=== PATIENT | female | born 1940 | race Caucasian/White ===

== ENCOUNTER → 2020-06-27 10:49 | Outpatient (BNVA) | payer MEDICARE, OTHER, SELFPAY | PROVIDERS: Family Provider Nurse Practitioner; PCP Nurse Practitioner; Visit Provider Nurse Practitioner | DX: I10 Essential (primary) hypertension (principal); Q72.812 Congenital shortening of left lower limb; E78.2 Mixed hyperlipidemia; F41.8 Other specified anxiety disorders; K21.9 Gastro-esophageal reflux disease without esophagitis; Z23 Encounter for immunization | CPT/HCPCS: 80053; 80061; 84443 ==

== ENCOUNTER → 2021-07-20 08:32 | Outpatient (BNVA) | payer MEDICARE, OTHER, SELFPAY | PROVIDERS: Family Provider Nurse Practitioner; PCP Nurse Practitioner; Visit Provider Nurse Practitioner | DX: I10 Essential (primary) hypertension (principal); E55.9 Vitamin D deficiency, unspecified | CPT/HCPCS: 80053; 80061; 82306; 84443; 85025 ==

== ENCOUNTER 2022-02-23 15:40 | Outpatient (CLI) | payer MEDICARE, OTHER, SELFPAY ==
--- NOTE | 2022-02-23 16:00 | XR_ITS ---
WS: [email or web address] XR knee RT 3V* [id number] REASON FOR EXAM: I10 - Essential (primary) hypertension FINDINGS: No fracture or focal bone lesion. Moderate narrowing of the medial knee joint space with subchondral sclerosis and marginal osteophytes . Lateral knee joint space is intact and relatively well-preserved. Mild narrowing of the patellofemoral joint space with mild subchondral sclerosis of the patella. No soft tissue abnormality. XR/XR knee RT 3V* [id number] IMPRESSION: Osteoarthritis of the right knee with no acute abnormality.
--- NOTE | 2022-02-23 16:00 | XR_ITS ---
WS: [email or web address] XR knee LT 3V* [id number] REASON FOR EXAM: I10 - Essential (primary) hypertension FINDINGS: No acute fracture or focal bone lesion. Mild to moderate narrowing of the medial knee joint space with mild subchondral sclerosis and small m arginal osteophytes. Mild narrowing of the lateral knee joint space. Mild narrowing of the patellofemoral joint space. No soft tissue abnormality. XR/XR knee LT 3V* [id number] IMPRESSION: Mild changes of osteoarthritis with no acute abnormality.
--- NOTE | 2022-02-23 16:00 | XR_ITS ---
WS: [email or web address] XR lumbar spine 2-3V* [id number] REASON FOR EXAM: I10 - Essential (primary) hypertension FINDINGS: Rotatory scoliosis convex left. Straightening of the normal lordosis of the lumbar spine. No focal vertebral body lesion. Compared to the examination of 08/03/2015, increasing rotatory scoliosis with increasing right latera l wedge compression deformity of L2. Severe narrowing of the intervertebral disc spaces from L1 to S1. Large anterior osteophytes. 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 No acute abnormality.
--- NOTE | 2022-02-23 16:00 | XR_ITS ---
WS: [email or web address] XR ankle RT min 3V* [id number] REASON FOR EXAM: I10 - Essential (primary) hypertension FINDINGS: No acute fracture or focal bone lesion. Joint spaces of the right ankle are relatively well preserved with mild degenerative change in the me dial and lateral malleolus. No soft tissue abnormality. XR/XR ankle RT min 3V* [id number] IMPRESSION: Minimal change of osteoarthritis with no acute abnormality.
--- NOTE | 2022-02-23 16:00 | XR_ITS ---
WS: [email or web address] XR hip BI 3-4V wo/w pel [id number] REASON FOR EXAM: I10 - Essential (primary) hypertension FINDINGS: RIGHT HIP: No fracture or focal bone lesion. Moderate narrowing of the right hip joint space with moderate subchondral sclerosis and osteophytic s purring of the acetabulum. The adjacent bony pelvis is intact. LEFT HIP: No fracture or focal bone lesion. Moderate narrowing of the left hip joint space with moderate subchondral sclerosis and osteophytic sp urring of the acetabulum. The adjacent bony pelvis is intact. No soft tissue abnormality. XR/XR hip BI 3-4V wo/w pel [id number] IMPRESSION: Bilateral osteoarthritis of the hips with no acute abnormality.
--- NOTE | 2022-02-23 16:00 | XR_ITS ---
WS: [email or web address] XR ankle LT min 3V* [id number] REASON FOR EXAM: I10 - Essential (primary) hypertension FINDINGS: No acute fracture or focal bone lesion. Joint spaces of the left ankle are intact and relatively well-preserved. No soft tissue abnormality. XR/XR ankle LT min 3V* [id number] IMPRESSION: No acute abnormality.
[2022-02-23 16:14] LABS: Basophils # 0.1 10^3/uL (0.0-0.1); Basophils % 0.8 %; Eosinophils # 0.2 10^3/uL (0.0-0.8); Eosinophils % 2.3 %; Hemoglobin 14.5 g/dL (11.5-15.3); Lymphocytes # 2.1 10^3/uL (0.8-4.8); Lymphocytes % 28.4 %; Mean Corpuscular Hemoglobin 30.6 pg (28.0-34.0); Mean Corpuscular Volume 92.8 fl (81-99); Mean Platelet Volume 9.7 fL (7.4-10.4); Monocytes # 0.7 10^3/uL (0.2-0.9); Monocytes % 9.7 %; Neutrophils # 4.34 10^3/uL (1.8-7.7); Neutrophils % 58.4 %; Nucleated Red Blood Cells % 0 %; Platelet Count 314 10^3/cmm (130-400); Red Blood Count 4.74 10^6/uL (4.1-5.3); Red Cell Distribution Width 12.4 % (12.1-15.1); White Blood Count 7.4 10^3/uL (4.0-10.0)
[2022-02-23 16:47] LABS: Alanine Aminotransferase 19 U/L (0-33); Albumin Level 4.2 g/dL (3.5-5.2); Alkaline Phosphatase 108 IU/L (35-105); Anion Gap 17.6 (5-19); Aspartate Amino Transferase 30 U/L (0-32); Blood Urea Nitrogen 14 mg/dL (8-23); Calcium 9.1 mg/dL (8.5-10.5); Carbon Dioxide 23 mmol/L (22-29); Chloride 100 mmol/L (98-107); Chol HDL Ratio 2.43 mg/dL (0.0-4.40); Cholesterol 131 mg/dL (0-200); Globulin 3.3 g/dL (1.3-4.6); Glucose 101 mg/dL (65-115); HDL Cholesterol 54 mg/dL (60-100); LDL Cholesterol Calculated 64 mg/dL (50-129); Osmolality Calculated 285 mOsm/kg (285-295); Potassium 3.6 mmol/L (3.5-5.1); Sodium 137 mmol/L (136-145); Total Bilirubin 0.5 mg/dL (0.15-1.2); Total Protein 7.5 g/dL (6.6-8.7); Triglycerides 66 mg/dL (0-150); VLDL Cholestrol Calculation 13 mg/dL (0-30)
[2022-02-23 16:48] LABS: Thyroid Stimulating Hormone 2.22 uIU/mL (0.27-4.20); Vitamin B12 449 pg/mL (232-1245)
== END 2022-02-23 15:41 | disposition home or self-care (01) ==
PROVIDERS: Family Provider Nurse Practitioner; PCP Nurse Practitioner; Visit Provider Nurse Practitioner
DX: I10 Essential (primary) hypertension (principal); M14.60 Charcot's joint, unspecified site; M47.9 Spondylosis, unspecified
CPT/HCPCS: 36415; 72100; 73522; 73562; 73610; 80053; 80061; 82607; 84443; 85025

== ENCOUNTER 2022-07-09 14:54 | Emergency (ER) | payer MEDICARE, OTHER, SELFPAY ==
--- NOTE | 2022-07-09 14:56 | CT_ITS ---
WS: [email or web address] CT HEAD NONCONTRAST HISTORY: fall TECHNIQUE: Contiguous axial imaging performed through the brain in 2.5 mm imaging. Bone and soft tiss ue windows. Sagittal and coronal reformats reviewed. All CT scans at [facility] use at least one of these dose optimization techniques: automated exposure control; mA and/or kV adjustment per pa tient size (includes targeted exams where dose is matched to clinical indication); or iterative recon struction. DLP: 1838.92 mGy.cm COMPARISON: 05/18/2019 No acute intracranial hemorrhage, midline shift or mass effect. Mild atrophy and moderate small vessel ischemic disease. Small lacunar infarcts in the basal ganglia. Ventricles: Normal size with no hydrocephalus. No inferior displacement of cerebellar tonsils. Paranasal sinuses: As visualized are clear. Mastoid air cells: Well pneumatized. Calvarium and scalp: Marked hyperostosis frontalis interna. No fractures are identified. Stable lytic area towards the RIGHT parietal vertex. CT/CT head wo con* [id number] IMPRESSION: 1. No acute intracranial hemorrhage or edema. 2. Mild atrophy with moderate small vessel ischemic disease.
--- NOTE | 2022-07-09 14:56 | CT_ITS ---
WS: [email or web address] CT CERVICAL SPINE HISTORY: fall TECHNIQUE: Contiguous 2.5 mm axial imaging performed through the entire cervical spine. Sagittal and coronal reformats also performed. All CT scans at [facility] use at least one of these dose o ptimization techniques: automated exposure control; mA and/or kV adjustment per patient size (include s targeted exams where dose is matched to clinical indication); or iterative reconstruction. DLP: 1838.92 mGy.cm COMPARISON: None available. Straightening and reversal of normal cervical lordosis. C4 anterolisthesis by 2 mm. Disc space narrow ing at C5-6. Craniocervical junction is normally aligned. Facet joints are normally aligned. Odontoid process is normal. Lateral masses of C1 and C2 are aligned. Mild diffuse bilateral facet joint arthr itis. No large disc protrusions. No severe central stenosis. Moderate central stenosis at C5-6 and C6 -7 with moderate foraminal stenosis predominantly due to osteophyte and disc disease. CT/CT cervical spin wo con* [id number] IMPRESSION: 1. No acute cervical spine fracture. 2. Moderate central and bilateral foraminal stenosis at C5-6 and C6-7.
--- NOTE | 2022-07-09 14:56 | CT_ITS ---
WS: [email or web address] CT FACIAL BONES HISTORY: fall TECHNIQUE: Images obtained from the supraorbital location through the mandible. Soft tissue and bone windows are reviewed. Coronal and sagittal reformats have also been submitted. DLP: 1838.[address] scans at [facility] use at least one of these dose optimization techniques: automated e xposure control; mA and/or kV adjustment per patient size (includes targeted exams where dose is matc hed to clinical indication); or iterative reconstruction. COMPARISON: None available. No zygomatic arch or nasal bone fractures. No air-fluid levels with the sinus cavities. Orbits and gl obes are negative. No soft tissue abnormality. Upper cervical spine is negative for acute injury. CT/CT facial bones wo con* [id number] IMPRESSION: No facial bone fracture.
[2022-07-09 15:02] VITALS: BP 153/92; PULSE 84; RESP 16; TEMP 36.6; O2SAT 92; BMI 28.3
--- NOTE | 2022-07-09 15:34 | ED_ITS ---
HPI - General Adult General: Chief complaint: Fall Stated complaint: FALL/ HIT HEAD Time Seen by Provider: 07/09/22 14:56 History of Present Illness: Patient is an 82-year-old female with history of hypertension, hyperlipidemia, prior L1 vertebral compression presenting to the emergency room after an episode of fall around 3:00. Patient was on a stepstool he turned and when she fell forwards hitting her head. Patient was slow to get up. Patient denies LOC is or any pain afterwards. Patient reports headache after the fall. Patient denies any other associated injuries or pain. Patient denies any associate chest pain, shortness of palpitation lightheadedness, nausea/vomiting or any other symptoms prior to the fall. Besides headache, patient has no focal complaints at the present time. Patient denies any anticoagulation use. Onset: 3pm Duration:once Location:home Severity:moderate Associated symptoms: Reports headache(s); Deny chest pain, dyspnea, nausea, rash, palpitations or vomiting Review of Systems Const: Denies: fever(s) or chills Eyes: Denies: change in vision ENMT: Denies: mouth pain Card: Denies: chest pain or palpitations Resp: Denies: dyspnea or non-productive cough GI: Denies: abdominal pain, nausea, vomiting or diarrhea : Denies: dysuria Musc: Denies: extremity pain Skin/Breast: Denies: rash or new lesions Neuro: Reports: headache(s); Denies: weakness in extremities Psych: Reports: other (Normal mood) Lefty/Lymph: Denies: easy bruising PFSH ED PFSH: Medical History Acid reflux Congenital shortening of left lower limb Essential (primary) hypertension Mixed anxiety and depressive disorder Mixed hyperlipidemia OA (osteoarthritis of spine) Restless leg Vitamin D insufficiency Wedge compression fracture of L1 vertebra Surgical History History of cataract surgery Family History Other Arthritis Cancer Heart disease Social History Smoking and tobacco status: never smoked Second hand smoke exposure: No Smoking risk assessment/counseling performed?: No Alcohol intake: never Desire information about alcohol rehabilitation?: No Counseling given: No Desire information about substance/drug rehabilitation?: No Counseling given: No Caregiver/support person: No Lives independently: Yes Household members: family Housing: House Marital status: / Current occupational status: retired History of recent travel: No Current gender identity: Female Physical Exam Const: COMMON NORMALS: alert HENMT: COMMON NORMALS: atraumatic HEAD & SCALP: atraumatic MOUTH: moist mucous membranes not abnormal OTHER: No bruises or hematoma Eye: COMMON NORMALS: EOMs intact bilaterally and conjunctivae normal CONJUNCTIVA: Yes conjunctivae normal Neck/C-Spine: COMMON NORMALS: full ROM and supple Resp: COMMON NORMALS: normal respiratory effort and clear to auscultation bilaterally AUSCULTATION: clear to auscultation bilaterally Cardio: COMMON NORMALS: regular rate RATE: regular rate GI: COMMON NORMALS: Soft to palpation and non-tender PALPATION: Yes Soft to palpation Extremity: COMMON NORMALS: full ROM Neuro: SENSORIUM/ORIENTATION: Yes alert MOTOR EXAM: No Abnormal motor strength present and Other motor observations present (no focal motor deficits) Psych: COMMON NORMALS: speech normal SPEECH: Yes normal speech MOOD & AFFECT: Yes euthymic mood Course Vital Signs: Vital signs: Vital Signs Temperature 97.8 F 07/09/22 15:02 Pulse Rate 98 07/09/22 18:01 Respiratory Rate 18 07/09/22 18:01 Blood Pressure 147/87 07/09/22 18:01 Pulse Oximetry 97 07/09/22 18:01 Oxygen Delivery Me thod 07/09/22 18:01 MDM - General Adult Medical Decision Making Patient is an 82-year-old female with history of hypertension, hyperlipidemia, prior L1 vertebral compression presenting to the emergency room after an episode of fall around 3:00. She has no focal findings of trauma on physical exam. CT head is negative for any acute findings. CT face negative for any acute fractures. Patient is received Tylenol for his headaches improved. Patient continues to be hemodynamically stable while observed in the emergency room. Do not suspect ACS. Patient reports headache improved with medication. Rx tylenol PRN headache, menthol PRN pain Disposition: Discharge. Patient counseled regarding diagnostic impression, treatment plan. Patient given ED strict return precautions to return for continuation, worsening, or development of new symptoms. Instructed to f/u w/ PCP regarding symptoms today. Patient verbalized understanding. Lab Data Radiology Impressions Cervical Spine CT 07/09/22 14:56 IMPRESSION: 1. No acute cervical spine fracture. 2. Moderate central and bilateral foraminal stenosis at C5-6 and C6-7. Face CT 07/09/22 14:56 IMPRESSION: No facial bone fracture. Head CT 07/09/22 14:56 IMPRESSION: 1. No acute intracranial hemorrhage or edema. 2. Mild atrophy with moderate small vessel ischemic disease. Laboratory Results Urine Color Straw (Yellow) 07/09/22 15:30 Urine Appearance Clear (CLEAR) 07/09/22 15:30 Urine pH 6 (5-7) 07/09/22 15:30 Ur Specific [place] 1.010 (1.005-1.030) 07/09/22 15:30 Urine Protein Neg (Negative) 07/09/22 15:30 Urine Glucose (UA) Norm (Normal) 07/09/22 15:30 Urine Ketones Negative (Negative) 07/09/22 15:30 Urine Blood Neg (Negative) 07/09/22 15:30 Urine Nitrate Negative (Negative) 07/09/22 15:30 Urine Bilirubin Neg (Negative) 07/09/22 15:30 Urine Urobilinogen Norm mg/dL (Negative) 07/09/22 15:30 Ur Leukocyte Esterase Negative (Negative) 07/09/22 15:30 Urine RBC None /hpf (0-2) 07/09/22 15:30 Urine WBC 0-4 /hpf (0-5) H 07/09/22 15:30 Ur Squamous Epith Cells 0-4 /hpf (0-5) H 07/09/22 15:30 Amorphous Sediment Not Reportable 07/09/22 15:30 Urine Bacteria Trace /hpf (NONE) 07/09/22 15:30 Imaging Data Other Imaging: Radiologist's impression: [address] [address] [address] Scan Report Signed Patient: Fernando Jean (Judy) Unit #: [id number] : 1940 Age/Sex: 82 / F ADM Date: 07/09/22 Loc: ER Room/Bed: Attending Dr: Ordering Provider/Ordering MD: Cassy Thomas MD Date of Service: 07/09/22 Procedure(s): CT head wo con* [id number] Accession Number(s): [id number] Report Number: [id number] WS: [email or web address] CT HEAD NONCONTRAST HISTORY: fall TECHNIQUE: Contiguous axial imaging performed through the brain in 2.5 mm imaging. Bone and soft tissue windows. Sagittal and coronal reformats reviewed.? All CT scans at [facility] use at least one of these dose optimization techniques: automated exposure control; mA and/or kV adjustment per patient size (includes targeted exams where dose is matched to clinical indication); or iterative reconstruction. DLP: 1838.92 mGy.cm COMPARISON: 05/18/2019 No acute intracranial hemorrhage, midline shift or mass effect. Mild atrophy and moderate small vessel ischemic disease. Small lacunar infarcts in the basal ganglia. Ventricles:? Normal size with no hydrocephalus. No inferior displacement of cerebellar tonsils. Paranasal sinuses: As visualized are clear. Mastoid air cells: Well pneumatized. Calvarium and scalp: Marked hyperostosis frontalis interna. No fractures are identified. Stable lytic area towards the RIGHT parietal vertex. CT/CT head wo con* [id number] IMPRESSION: ? 1.? No acute intracranial hemorrhage or edema. 2.? Mild atrophy with moderate small vessel ischemic disease. ? Dictated By: Myrna Resendiz DO Signed By: Myrna Resendiz DO Signed Date/Time: 07/09/22 1551 DD/ [address] [place] [address] CT Scan Report Signed Patient: Fernando Jean) Ruthann Unit #: [id number] : 1940 Age/Sex: 82 / F ADM Date: 07/09/22 Loc: ER Room/Bed: Attending Dr: Ordering Provider/Ordering MD: Cassy Thomas MD Date of Service: 07/09/22 Procedure(s): CT facial bones wo con* [id number] Accession Number(s): [id number] Report Number: [id number] WS: [email or web address] CT FACIAL BONES HISTORY: fall TECHNIQUE: Images obtained from the supraorbital location through the mandible. Soft tissue and bone windows are reviewed. Coronal and sagittal reformats have also been submitted. DLP: 1838.[address] scans at [facility] use at least one of these dose optimization techniques: automated exposure control; mA and/or kV adjustment per patient size (includes targeted exams where dose is matched to clinical indication); or iterative reconstruction. COMPARISON: None available. No zygomatic arch or nasal bone fractures. No air-fluid levels with the sinus cavities. Orbits and globes are negative. No soft tissue abnormality. Upper cervical spine is negative for acute injury. CT/CT facial bones wo con* [id number] IMPRESSION: ? No facial bone fracture. ? ? ? Dictated By: Myrna Resendiz DO Signed By: Myrna Resendiz DO Signed Date/Time: 07/09/221552 DD/ 155 [facility] [address] [place] [address] CT Scan Report Signed Patient: Fernando Jean) Ruthann Unit #: [id number] : 1940 Age/Sex: 82 / F ADM Date: 07/09/22 Loc: ER Room/Bed: Attending Dr: Ordering Provider/Ordering MD: Cassy Thomas MD Date of Service: 07/09/22 Procedure(s): CT cervical spin wo con* 37815 Accession Number(s): [id number] Report Number: [id number] WS: [email or web address] CT CERVICAL SPINE HISTORY: fall TECHNIQUE: Contiguous 2.5 mm axial imaging performed through the entire cervical spine. Sagittal and coronal reformats also performed.? All CT scans at [facility] use at least one of these dose optimization techniques: automated exposure control; mA and/or kV adjustment per patient size (includes targeted exams where dose is matched to clinical indication); or iterative reconstruction. DLP: 1838.92 mGy.cm COMPARISON: None available. Straightening and reversal of normal cervical lordosis. C4 anterolisthesis by 2 mm. Disc space narrowing at C5-6. Craniocervical junction is normally aligned. Facet joints are normally aligned. Odontoid process is normal. Lateral masses of C1 and C2 are aligned. Mild diffuse bilateral facet joint arthritis. No large disc protrusions. No severe central stenosis. Moderate central stenosis at C5-6 and C6-7 with moderate foraminal stenosis predominantly due to osteophyte and disc disease. CT/CT cervical spin wo con* [id number] IMPRESSION: ? 1.? No acute cervical spine fracture. 2.? Moderate central and bilateral foraminal stenosis at C5-6 and C6-7. ? Dictated By: Myrna Resendiz DO Signed By: Myrna Resendiz DO Signed Date/Time: 07/09/221556 DD/ 52 Discharge Plan Discharge Patient Disposition: Home Clinical Impression: Fall, Headache Condition: Stable Prescriptions: New acetaminophen 500 mg tablet 500 mg PO Q6H PRN (Reason: pain) 5 Days Qty: 20 0RF Biofreeze (menthol) 5 % gel 1 ea topical BID PRN (Reason: pain) 10 Days Qty: 1 0RF No Action aspirin 81 mg tablet,delayed release (DR/EC) 81 mg PO ONCE acetaminophen [Tylenol] 325 mg tablet 325 mg PO ONCE PRN amlodipine 5 mg tablet 5 mg PO QDAY Qty: 90 1RF atorvastatin 40 mg tablet 40 mg PO QDAY Qty: 90 1RF furosemide [Lasix] 20 mg tablet 20 mg PO QAM Qty: 90 1RF olmesartan [Benicar] 40 mg tablet 40 mg PO QDAY Qty: 90 1RF paroxetine HCl 20 mg tablet 10 mg PO BID Qty: 90 1RF pantoprazole [Protonix] 20 mg tablet,delayed release (DR/EC) 20 mg PO DAILY Qty: 90 1RF Rx Instructions: stop Pepcid lidocaine 5 % adhesive patch,medicated 2 patch topical DAILY Qty: 60 5RF Rx Instructions: leave on most painful area for up to 12 hrs Probiotic Digestive Care 20 billion cell capsule See Rx Instructions PO .2 times day Qty: 60 5RF Rx Instructions: 20 billion cell PO .2 times day; Discharge Orders: Discharge ED (Routine); Ordered 07/09/22 Ordered By: Cassy Thomas Referrals: Mustapha Claros, [facility]IST-C [Primary Care Provider] - Discharge Diet: Advance as tolerated Discharge Activity: Increase activity as tolerated Patient Instructions: Fall Prevention (ED) Activity Restrictions/Additional Instructions: Come back if you have any new or concerning issues. 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
[2022-07-09 15:47] LABS: Bilirubin Urine Neg (Negative); Blood Urine Neg (Negative); Glucose Urine UA Norm (Normal); Ketones Urine Negative (Negative); Leukocyte Esterase Urine Negative (Negative); Nitrate Urine Negative (Negative); Protein Urine Neg (Negative); Urine Appearance Clear (CLEAR); Urine Color Straw (Yellow); Urobilinogen Urine Norm (Negative); pH Urine 6 (5-7)
[2022-07-09 15:48] LABS: Squamous Epithelial Cell Urine 0-4 /hpf (0-5); WBC Urine 0-4 /hpf (0-5)
[2022-07-09 15:49] LABS: Add Urine Culture? No; Bacteria Urine TRACE /hpf
[2022-07-09] MEDS: acetaminophen 500 mg Tablet PO (17:58)
[2022-07-09 18:01] VITALS: BP 147/87; PULSE 98; RESP 18; O2SAT 97
== END 2022-07-09 19:02 | disposition home or self-care (01) ==
PROVIDERS: Emergency Provider Emergency Medicine; PCP Nurse Practitioner
DX: R51.9 Headache, unspecified (principal); I10 Essential (primary) hypertension; E78.5 Hyperlipidemia, unspecified; W19.XXXA Unspecified fall, initial encounter
CPT/HCPCS: 70450; 70486; 72125; 81001; 99284

== ENCOUNTER → 2022-10-25 13:25 | Outpatient (BNVA) | payer MEDICARE, OTHER, SELFPAY | PROVIDERS: PCP Nurse Practitioner; Visit Provider Nurse Practitioner | DX: E55.9 Vitamin D deficiency, unspecified (principal); I10 Essential (primary) hypertension; R42 Dizziness and giddiness | CPT/HCPCS: 80053; 80061; 82306; 84443; 85025 ==

== ENCOUNTER 2022-12-03 13:40 | Outpatient (CLI) | payer MEDICARE, OTHER, SELFPAY ==
--- NOTE | 2022-12-03 13:45 | MR_ITS ---
WS: [email or web address] MRA ANGIOGRAPHY [place] HISTORY: S00.93XA - Contusion of unspecified part of head COMPARISON: None available. TECHNIQUE: 3-D MR angiography is performed of the [place]. All images are reviewed including source images. Distal vertebral and basilar arteries are intact with no significant stenosis or plaque. Posterior ce rebral arteries are normal course and caliber. Posterior communicating arteries are both patent. Intracranial portion of the internal carotid arteries are normal course and caliber. No significant a therosclerosis, stenosis or aneurysm identified. Middle and anterior cerebral arteries are both paten t with no significant disease. Anterior communicating artery is also normal. MR/MR angio head wo con [id number] IMPRESSION: Normal MRA [place]. No significant stenosis. No aneurysms.
== END 2022-12-03 13:41 | disposition home or self-care (01) ==
PROVIDERS: PCP Nurse Practitioner; Visit Provider Nurse Practitioner
DX: S00.93XA Contusion of unspecified part of head, initial encounter (principal); R41.3 Other amnesia; W19.XXXA Unspecified fall, initial encounter
CPT/HCPCS: 70544

== ENCOUNTER 2023-03-25 16:40 | Emergency (ER) | payer MEDICARE, OTHER, SELFPAY ==
[2023-03-25 16:54] VITALS: BP 124/59; PULSE 103; RESP 18; TEMP 36.8; O2SAT 96
[2023-03-25 19:07] LABS: Basophils # 0.1 10^3/uL (0.0-0.1); Basophils % 0.8 %; Eosinophils # 0.1 10^3/uL (0.0-0.8); Eosinophils % 1.1 %; Hematocrit 47.5 % (37.0-47.0); Hemoglobin 15.4 g/dL (11.5-15.3); Lymphocytes # 2.2 10^3/uL (0.8-4.8); Lymphocytes % 22.2 %; Mean Corpuscular HGB Conc 32.4 g/dL (30.0-36.0); Mean Corpuscular Hemoglobin 29.9 pg (28.0-34.0); Mean Corpuscular Volume 92.2 fl (81-99); Monocytes # 0.9 10^3/uL (0.2-0.9); Monocytes % 8.6 %; Nucleated Red Blood Cells % 0 %; Platelet Count 284 10^3/cmm (130-400); Red Blood Count 5.15 10^6/uL (4.1-5.3); Red Cell Distribution Width 12.3 % (12.1-15.1); White Blood Count 9.9 10^3/uL (4.0-10.0)
[2023-03-25 19:36] LABS: Troponin(5th) Baseline 11 ng/L (0-10)
[2023-03-25 19:37] LABS: Alkaline Phosphatase 137 U/L (35-105); Blood Urea Nitrogen 14 mg/dL (8-23); Calcium 8.7 mg/dL (8.5-10.5); Carbon Dioxide 22 mmol/L (22-29); Chloride 101 mmol/L (98-107); Creatinine Clr Calc Pharmacy 45.5373; Globulin 3.6 g/dL (1.3-4.6); Glucose 92 mg/dL (65-115); Osmolality Calculated 280 mOsm/kg (285-295); Sodium 135 mmol/L (136-145); Total Bilirubin 0.5 mg/dL (0.15-1.2); Total Protein 7.6 g/dL (6.6-8.7)
[2023-03-25 19:38] LABS: Alanine Aminotransferase 11 U/L (0-33); Anion Gap 16.2 (5-19); Aspartate Amino Transferase 24 U/L (0-32); Potassium 4.2 mmol/L (3.5-5.1)
[2023-03-25 19:43] LABS: NT Pro B Type Natriuretic Pept 355 pg/mL (0-450); Thyroid Stimulating Hormone 2.29 uIU/mL (0.27-4.20)
--- NOTE | 2023-03-25 20:24 | XRR_ITS ---
PROCEDURE INFORMATION: Exam: XR Chest Exam date and time: 03/25/2023 8:28 PM Age: 82 years old Clinical indication: Shortness of breath; Additional info: SOB TECHNIQUE: Imaging protocol: Radiologic exam of the chest. Views: 1 view. COMPARISON: CR XR chest 1V [id number] 04/28/2019 2:05 PM FINDINGS: Lungs: Lungs are clear bilaterally. Pleural spaces: No pleural effusion. No pneumothorax. Heart/Mediastinum: Stable mild enlargement of the cardiac silhouette. Mediastinal contours are unremarkable. Vasculature: Vascular calcifications in the aorta. Bones/joints: Unremarkable for age. XR/XR chest 1V portable [id number] IMPRESSION: 1. No acute cardiopulmonary process. 2. Incidental/nonacute findings are listed in the report.
[2023-03-25 20:32] VITALS: BP 192/83; O2SAT 94
--- NOTE | 2023-03-25 20:51 | W.ED.WEAKNES ---
HPI - Weakness General: Chief complaint: Weakness Stated complaint: general weakness,heart skipping beats Time Seen by Provider: 03/25/23 20:23 Source: patient Mode of arrival: ambulatory Limitations: no limitations History of Present Illness: 82-year-old female states that last 4 to 5 days she has felt like her heart has been skipping a few beats here on her EKG she does have PVCs she denies any palpitations or chest pain she she had some mild generalized weakness she denies any cough or fever she denies any shortness of breath denies any worsening proving factors Associated symptoms: Denies chest pain, chills, dysuria, fever(s), headache(s), nausea or vomiting Review of Systems Const: Denies: fever(s), chills, body aches or change in appetite ENMT: Denies: throat pain or dental pain Card: Reports: irregular heart rhythm; Denies: chest pain Resp: Denies: dyspnea GI: Denies: abdominal pain, nausea, vomiting or diarrhea : Denies: dysuria Musc: Denies: neck pain or back pain Skin/Breast: Denies: rash Neuro: Denies: headache(s) PFSH ED PFSH: Medical History Acid reflux Congenital shortening of left lower limb Essential (primary) hypertension Mixed anxiety and depressive disorder Mixed hyperlipidemia OA (osteoarthritis of spine) Restless leg Vitamin D insufficiency Wedge compression fracture of L1 vertebra Surgical History History of cataract surgery Family History Other Arthritis Cancer Heart disease Social History Smoking and tobacco status: never smoked Second hand smoke exposure: No Smoking risk assessment/counseling performed?: No Alcohol intake: never Desire information about alcohol rehabilitation?: No Counseling given: No Substance/Drug Use: never Desire information about substance/drug rehabilitation?: No Counseling given: No Caregiver/support person: No Lives independently: Yes Household members: family Housing: House Marital status: / Current occupational status: retired Do you think of yourself as: Straight/Heterosexual Current gender identity: Female Physical Exam Const: COMMON NORMALS: no acute distress, patient oriented x3 and healthy appearing HENMT: COMMON NORMALS: normocephalic and atraumatic HEAD & SCALP: normocephalic and atraumatic Eye: COMMON NORMALS: Equal, round and reactive pupils present and EOMs intact bilaterally PUPIL: Yes Equal, round and reactive pupils present Neck/C-Spine: COMMON NORMALS: full ROM and supple Chest: COMMONS NORMALS: normal inspection of the chest and normal palpation of entire chest wall Resp: COMMON NORMALS: normal respiratory effort, No retractions, No use of accessory muscles and clear to auscultation bilaterally AUSCULTATION: clear to auscultation bilaterally Cardio: COMMON NORMALS: regular rate, regular rhythm and No murmurs present (Cardio) RATE: regular rate RHYTHM: regular rhythm GI: COMMON NORMALS: Normal to inspection, nondistended, normoactive bowel sounds present, Soft to palpation, non-tender and no masses PALPATION: Yes Soft to palpation Extremity: COMMON NORMALS: normal to inspection and full ROM Neuro: COMMON NORMALS: patient oriented x3, moves all extremities and no focal motor deficits Psych: COMMON NORMALS: mental status grossly normal, Normal thought process present and cooperative THOUGHT PROCESS: Normal thought process present Skin: COMMON NORMALS: no rashes or lesions noted and no wounds GENERAL SKIN EXAM: no rashes or lesions noted Course Vital Signs: Vital signs: Vital Signs Temperature 98.2 F 03/25/23 16:54 Pulse Rate 91 03/25/23 21:55 Respiratory Rate 18 03/25/23 21:55 Blood Pressure 141/75 03/25/23 21:55 Pulse Oximetry 93 03/25/23 21:55 Oxygen Delivery Me thod Room Air 03/25/23 21:50 MDM - Weakness Medical Decision Making Patient presents here with feelings examines get beats she does have frequent PVCs here but she is well-appearing here blood pressures been normal blood works normal she is stable for discharge she is to follow-up with PCP and return if worsening. Lab Data I reviewed the patient's lab results. 03/25/23 18:45 03/25/23 18:45 Radiology Impressions Chest X-Ray 03/25/23 20:24 IMPRESSION: 1. No acute cardiopulmonary process. 2. Incidental/nonacute findings are listed in the report. Laboratory Results WBC 9.9 10^3/uL (4.0-10.0) 03/25/23 18:45 RBC 5.15 10^6/uL (4.1-5.3) 03/25/23 18:45 Hgb 15.4 g/dL (11.5-15.3) H 03/25/23 18:45 Hct 47.5 % (37.0-47.0) H 03/25/23 18:45 MCV 92.2 fl (81-99) 03/25/23 18:45 MCH 29.9 pg (28.0-34.0) 03/25/23 18:45 MCHC 32.4 g/dL (30.0-36.0) 03/25/23 18:45 RDW 12.3 % (12.1-15.1) 03/25/23 18:45 Plt Count 284 10^3/cmm (130-400) 03/25/23 18:45 MPV 11.0 fL (7.4-10.4) H 03/25/23 18:45 Neut % (Auto) 67.0 % 03/25/23 18:45 Lymph % (Auto) 22.2 % 03/25/23 18:45 [place] % (Auto) 8.6 % 03/25/23 18:45 Eos % (Auto) 1.1 % 03/25/23 18:45 Baso % (Auto) 0.8 % 03/25/23 18:45 Neut # (Auto) 6.60 10^3/uL (1.8-7.7) 03/25/23 18:45 Lymph # (Auto) 2.2 10^3/uL (0.8-4.8) 03/25/23 18:45 [place] # (Auto) 0.9 10^3/uL (0.2-0.9) 03/25/23 18:45 Eos # (Auto) 0.1 10^3/uL (0.0-0.8) 03/25/23 18:45 Baso # (Auto) 0.1 10^3/uL (0.0-0.1) 03/25/23 18:45 Nucleated RBC % (auto) 0 % 03/25/23 18:45 Nucleated RBCs # 0.0 /100WBC 03/25/23 18:45 Sodium 135 mmol/L (136-145) L 03/25/23 18:45 Potassium 4.2 mmol/L (3.5-5.1) 03/25/23 18:45 Chloride 101 mmol/L (98-107) 03/25/23 18:45 Carbon Dioxide 22 mmol/L (22-29) 03/25/23 18:45 Anion Gap 16.2 (5-19) 03/25/23 18:45 BUN 14 mg/dL (8-23) 03/25/23 18:45 Creatinine 0.9 mg/dL (0.5-0.9) 03/25/23 18:45 GFR Calculation Not Reportable 03/25/23 18:45 Glucose 92 mg/dL (65-115) 03/25/23 18:45 Calculated Osmolality 280 mOsm/kg (285-295) L 03/25/23 18:45 Calcium 8.7 mg/dL (8.5-10.5) 03/25/23 18:45 Total Bilirubin 0.5 mg/dL (0.15-1.2) 03/25/23 18:45 AST 24 U/L (0-32) 03/25/23 18:45 ALT 11 U/L (0-33) 03/25/23 18:45 Alkaline Phosphatase 137 U/L (35-105) H 03/25/23 18:45 Troponin T Baseline 11 ng/L (0-10) H 03/25/23 18:45 Troponin T 120 Minute 11.26 ng/L (0-10) H 03/25/23 20:40 Delta Troponin T 0.26 ABS# (0-10) 03/25/23 20:40 NT-Pro-B Natriuret Pep 355 pg/mL (0-450) 03/25/23 18:45 Total Protein 7.6 g/dL (6.6-8.7) 03/25/23 18:45 Albumin 4.0 g/dL (3.5-5.2) 03/25/23 18:45 Globulin 3.6 g/dL (1.3-4.6) 03/25/23 18:45 TSH 2.29 uIU/mL (0.27-4.20) 03/25/23 18:45 EKG Data EKG 1: I personally reviewed and interpreted this EKG as follows: EKG interpretation date: 03/25/23 EKG interpretation time: 20:26 Interpretation: nsr hr [address] elevation qrs 95 qtc 436 Discharge Plan Discharge Patient Disposition: Home Clinical Impression: Frequent PVCs, Weakness Condition: Stable Prescriptions: No Action aspirin 81 mg tablet,delayed release (DR/EC) 81 mg PO ONCE acetaminophen [Tylenol] 325 mg tablet 325 mg PO ONCE PRN meclizine 25 mg tablet 25 mg PO .at bedtime Qty: 30 1RF Probiotic Digestive Care 20 billion cell capsule See Rx Instructions PO .2 times day Qty: 60 5RF Rx Instructions: 20 billion cell PO .2 times day; lidocaine 5 % adhesive patch,medicated 2 patch topical DAILY Qty: 60 5RF Rx Instructions: leave on most painful area for up to 12 hrs atorvastatin 40 mg tablet 40 mg PO QDAY Qty: 90 0RF amlodipine 5 mg tablet 5 mg PO QDAY Qty: 90 0RF famotidine 40 mg tablet 40 mg PO BID Qty: 180 0RF Rx Instructions: Stop Protonix furosemide [Lasix] 20 mg tablet 20 mg PO QAM Qty: 90 0RF olmesartan [Benicar] 40 mg tablet 40 mg PO QDAY Qty: 90 0RF paroxetine HCl 20 mg tablet 10 mg PO BID Qty: 90 0RF Discharge Orders: Discharge ED (Routine); Ordered 03/25/23 Ordered By: Pankaj Aguayo Referrals: Mustapha Claros FNP-C [Primary Care Provider] - 1-3 days Discharge Diet: Advance as tolerated Discharge Activity: Resume usual activity Patient Instructions: Premature Ventricular Contractions (ED) Coding Level of Care Code 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
[2023-03-25 21:10] LABS: Troponin 5 2HR 11.26 ng/L (0-10)
[2023-03-25 21:11] LABS: Troponin 5 2HR Delta 0.26 ABS# (0-10)
[2023-03-25 21:24] VITALS: BP 194/106; PULSE 74; RESP 20; O2SAT 94
[2023-03-25 21:50] VITALS: BP 141/75; PULSE 72; O2SAT 93
[2023-03-25 21:55] VITALS: BP 141/75; PULSE 91; RESP 18; O2SAT 93
== END 2023-03-25 22:01 | disposition home or self-care (01) ==
PROVIDERS: Emergency Provider Emergency Medicine; PCP Nurse Practitioner
DX: R53.1 Weakness (principal); I49.3 Ventricular premature depolarization; I10 Essential (primary) hypertension; E78.2 Mixed hyperlipidemia
CPT/HCPCS: 36415; 71045; 80053; 83880; 84443; 84484; 85025; 99285

== ENCOUNTER 2023-04-19 20:22 | Inpatient (IN) | payer MEDICARE, OTHER, SELFPAY ==
[2023-04-19 20:28] VITALS: BP 134/63; PULSE 75; RESP 18; TEMP 37.1; O2SAT 94; BMI 32.9
--- NOTE | 2023-04-19 20:54 | XRR_ITS ---
PROCEDURE INFORMATION: Exam: XR Chest Exam date and time: 04/19/2023 9:44 PM Age: 82 years old Clinical indication: Other: AMS TECHNIQUE: Imaging protocol: Radiologic exam of the chest. Views: 1 view. COMPARISON: CR (CHEST, ) 03/25/2023 8:28 PM FINDINGS: Lungs: Unremarkable. No consolidation. Pleural spaces: Unremarkable. No pleural effusion. No pneumothorax. Heart/Mediastinum: Unremarkable. No cardiomegaly. Bones/joints: Unremarkable. XR/XR chest 1V portable [id number] IMPRESSION: No acute findings.
[2023-04-19 21:41] LABS: Basophils # 0.1 10^3/uL (0.0-0.1); Basophils % 0.8 %; Eosinophils # 0.2 10^3/uL (0.0-0.8); Eosinophils % 2.4 %; Hematocrit 45.1 % (37.0-47.0); Hemoglobin 14.6 g/dL (11.5-15.3); Lymphocytes # 1.6 10^3/uL (0.8-4.8); Lymphocytes % 17.6 %; Mean Corpuscular HGB Conc 32.4 g/dL (30.0-36.0); Mean Corpuscular Hemoglobin 29.9 pg (28.0-34.0); Mean Corpuscular Volume 92.2 fl (81-99); Mean Platelet Volume 9.8 fL (7.4-10.4); Monocytes % 11.3 %; Neutrophils # 5.98 10^3/uL (1.8-7.7); Neutrophils % 67.6 %; Nucleated Red Blood Cells % 0 %; Platelet Count 344 10^3/cmm (130-400); Red Blood Count 4.89 10^6/uL (4.1-5.3); Red Cell Distribution Width 12.5 % (12.1-15.1); White Blood Count 8.9 10^3/uL (4.0-10.0)
[2023-04-19 21:57] LABS: Amphetamines Screen Urine Negative (Negative); Barbiturates Screen Urine Negative (Negative); Benzodiazepines Screen Urine Negative (Negative); Cocaine Screen Urine Negative (Negative); Opiate Screen Urine Negative (Negative); PCP Screen Urine Negative (Negative); THC Screen Urine Negative (Negative)
[2023-04-19 21:58] LABS: Urine Appearance Cloudy (CLEAR); Urine Color Yellow (Yellow); pH Urine 5 (5-7)
[2023-04-19 21:59] LABS: Add Urine Microscopic? YES; Bilirubin Urine 1+ (Negative); Blood Urine Neg (Negative); Glucose Urine UA Norm (Normal); Ketones Urine 1+ (Negative); Leukocyte Esterase Urine 2+ (Negative); Nitrate Urine Negative (Negative); Protein Urine 1+ (Negative); Urobilinogen Urine Norm (Negative)
[2023-04-19 22:00] VITALS: BP 163/69; PULSE 76; O2SAT 92
[2023-04-19 22:00] LABS: Add Urine Culture? No; Bacteria Urine TRACE /hpf; RBC Urine 0-4 /hpf (0-2); Squamous Epithelial Cell Urine 15-25 /hpf (0-5); WBC Urine >100 /hpf (0-5)
[2023-04-19 22:10] LABS: Acetaminophen < 5.0 ug/mL (10-30); Alanine Aminotransferase 13 U/L (0-33); Alcohol Level < 10 mg/dL (0-10); Alkaline Phosphatase 138 U/L (35-105); Anion Gap 15.4 (5-19); Aspartate Amino Transferase 32 U/L (0-32); Blood Urea Nitrogen 21 mg/dL (8-23); Calcium 9.1 mg/dL (8.5-10.5); Carbon Dioxide 26 mmol/L (22-29); Chloride 103 mmol/L (98-107); Globulin 3.7 g/dL (1.3-4.6); Glucose 95 mg/dL (65-115); Osmolality Calculated 295 mOsm/kg (285-295); Potassium 3.4 mmol/L (3.5-5.1); Salicylate < 0.3 mg/dL (3-10); Sodium 141 mmol/L (136-145); Thyroid Stimulating Hormone 4.28 uIU/mL (0.27-4.20); Total Bilirubin 0.5 mg/dL (0.15-1.2); Total Protein 7.7 g/dL (6.6-8.7)
[2023-04-19 22:30] VITALS: BP 136/65; PULSE 73; O2SAT 93
--- NOTE | 2023-04-19 22:32 | ECG_ITS ---
[facility] Test Date: 2023-04-19 Pat Name: Fernando Jean Department: Room: Gender: Female Induction Coordination Power Engineer: : [id number] Requested By: Oh Clemons Order Number: [id number] Sandra MD: Joseph Ramirez M.D. Measurements Intervals [place] Rate: 74 P: 63 [place]: 157 QRS: 26 QRSD: 94 T: 37 QT: 401 QTc: 446 Interpretive Statements SINUS RHYTHM POSSIBLE LEFT ATRIAL ENLARGEMENT [-0.1mV P-WAVE IN V1/V2] NONSPECIFIC T-WAVE ABNORMALITY Compared to ECG 04/28/2019 20:49:41 No significant changes Electronically Signed On 04-20-2023 1:04:38 CDT by Joseph Ramirez M.D. [id number]
[2023-04-19 23:00] VITALS: BP 144/63; PULSE 73; O2SAT 91
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
[2023-04-19] MEDS: cefTRIAXone 1,000 MG in sodium chloride 0.9% (plus) 50 ML 100 MG IV (23:46)
[2023-04-20] VITALS (10 sets, daily range): BP systolic 113–147; BP diastolic 60–89; PULSE 69–101; RESP 16–78; TEMP 36.2–36.9; O2SAT 91–97
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
[2023-04-20] MEDS: sodium chloride 0.9% 1,000 ML 100 ML IV (01:15)
[2023-04-20] MEDS: heparin 5,000 unit/mL INJ 1 mL 5000 UNIT SUBCUT ×2 (01:16→14:18)
[2023-04-20 01:24] LABS: Lactic Sepsis W/Reflex 1.1 mmol/L (0.5-2.2)
[2023-04-20 01:34] LABS: Procalcitonin 0.06 ng/mL (0-0.5); Thyroid Stimulating Hormone 2.55 uIU/mL (0.27-4.20)
[2023-04-20] MEDS: famotidine 20 mg Tablet 40 MG PO ×2 (09:07→18:58)
[2023-04-20] MEDS: PARoxetine 20 mg Tablet 10 MG PO ×2 (09:07→18:59)
[2023-04-20] MEDS: atorvastatin 40 mg Tablet PO (09:07)
[2023-04-20] MEDS: amlodipine 5 mg Tablet PO (09:07)
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
[2023-04-20] MEDS: potassium chloride ER 20 mEq Tablet PO (14:18)
[2023-04-20] MEDS: sodium chloride 0.9% 1,000 ML 30 ML IV (14:19)
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
[2023-04-21] MEDS: cefTRIAXone 1,000 MG in sodium chloride 0.9% (plus) 50 ML 100 MG IV (00:14)
[2023-04-21] MEDS: heparin 5,000 unit/mL INJ 1 mL 5000 UNIT SUBCUT ×2 (00:15→14:06)
[2023-04-21 04:00] VITALS: BP 133/75; PULSE 66; RESP 17; TEMP 36.4; O2SAT 91
[2023-04-21 05:48] LABS: Basophils # 0.1 10^3/uL (0.0-0.1); Basophils % 0.9 %; Eosinophils # 0.2 10^3/uL (0.0-0.8); Hematocrit 42.2 % (37.0-47.0); Hemoglobin 13.1 g/dL (11.5-15.3); Lymphocytes # 1.2 10^3/uL (0.8-4.8); Lymphocytes % 22.4 %; Mean Corpuscular Hemoglobin 29.4 pg (28.0-34.0); Mean Corpuscular Volume 94.6 fl (81-99); Mean Platelet Volume 11.6 fL (7.4-10.4); Monocytes # 0.5 10^3/uL (0.2-0.9); Monocytes % 9.3 %; Neutrophils # 3.47 10^3/uL (1.8-7.7); Nucleated Red Blood Cells % 0 %; Platelet Count 249 10^3/cmm (130-400); Red Blood Count 4.46 10^6/uL (4.1-5.3); Red Cell Distribution Width 12.4 % (12.1-15.1); White Blood Count 5.5 10^3/uL (4.0-10.0)
[2023-04-21 05:59] VITALS: PULSE 70
[2023-04-21 06:18] LABS: Alanine Aminotransferase 11 U/L (0-33); Albumin Level 3.1 g/dL (3.5-5.2); Alkaline Phosphatase 109 U/L (35-105); Blood Urea Nitrogen 12 mg/dL (8-23); Calcium 8.2 mg/dL (8.5-10.5); Carbon Dioxide 21 mmol/L (22-29); Chloride 103 mmol/L (98-107); Globulin 3.2 g/dL (1.3-4.6); Glucose 103 mg/dL (65-115); Magnesium 1.7 mg/dL (1.7-2.3); Osmolality Calculated 278 mOsm/kg (285-295); Sodium 134 mmol/L (136-145); Total Bilirubin 0.4 mg/dL (0.15-1.2); Total Protein 6.3 g/dL (6.6-8.7)
[2023-04-21 06:29] LABS: Anion Gap 13.9 (5-19); Aspartate Amino Transferase 26 U/L (0-32); Potassium 3.9 mmol/L (3.5-5.1)
[2023-04-21 07:34] LABS: Vitamin B12 275 pg/mL (232-1245)
[2023-04-21 08:00] VITALS: BP 147/74; PULSE 87; RESP 18; TEMP 36.2; O2SAT 93
[2023-04-21] MEDS: atorvastatin 40 mg Tablet PO (08:21)
[2023-04-21] MEDS: famotidine 20 mg Tablet 40 MG PO ×2 (08:21→17:50)
[2023-04-21] MEDS: PARoxetine 20 mg Tablet 10 MG PO ×2 (08:22→17:50)
[2023-04-21] MEDS: amlodipine 5 mg Tablet PO (08:22)
[2023-04-21 11:34] VITALS: BP 133/71; PULSE 74; RESP 19; TEMP 36.2; O2SAT 94
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
[2023-04-21 16:00] VITALS: BP 147/72; PULSE 75; RESP 18; TEMP 36.4; O2SAT 95
[2023-04-21] MEDS: sodium chloride 0.9% 1,000 ML 30 ML IV (17:51)
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
[2023-04-21] MEDS: magnesium sulfate premix 2 GM/50 ML PIGGYBACK IV (19:59)
[2023-04-21 20:00] VITALS: BP 153/68; PULSE 72; RESP 17; TEMP 36.6; O2SAT 94
[2023-04-22] VITALS: BP 148/54; PULSE 79; RESP 19; TEMP 36.6; O2SAT 94
[2023-04-22] MEDS: heparin 5,000 unit/mL INJ 1 mL 5000 UNIT SUBCUT ×2 (01:17→23:48)
[2023-04-22] MEDS: cefTRIAXone 1,000 MG in sodium chloride 0.9% (plus) 50 ML 100 MG IV (01:17)
[2023-04-22 07:33] VITALS: BP 129/79; PULSE 91; RESP 17; TEMP 36.8; O2SAT 95
[2023-04-22] MEDS: famotidine 20 mg Tablet 40 MG PO ×2 (09:00→18:27)
[2023-04-22] MEDS: amlodipine 5 mg Tablet PO (09:00)
[2023-04-22] MEDS: PARoxetine 20 mg Tablet 10 MG PO ×2 (09:00→18:27)
[2023-04-22] MEDS: atorvastatin 40 mg Tablet PO (09:00)
[2023-04-22 09:54] LABS: Magnesium 2.2 mg/dL (1.7-2.3)
[2023-04-22 11:44] VITALS: BP 145/75; PULSE 94; RESP 16; TEMP 36.3; O2SAT 92
--- NOTE | 2023-04-22 14:44 | PM.PN ---
Subjective Subjective: Patient is stating that she wants to go home Requiring one-to-one supervision Patient is fixated on a believe that she was being watched by few people however stating that today they have left her alone and now she is at ease, I have requested Dr. Weaver Vitals/I&O/Wt Last Vital Signs Temp 97.4 F L 04/22/23 11:44 Pulse 94 04/22/23 11:44 Resp 16 04/22/23 11:44 BP 145/75 04/22/23 11:44 Pulse Ox 92 04/22/23 11:44 O2 Del Method Room Air 04/21/23 16:00 04/21/23 04/22/23 04/22/23 22:59 06:59 14:59 Intake Total 1664 / 2504 50 / 2554 480 / 480 Balance 1664 / 2504 50 / 2554 480 / 480 Physical Exam Narrative: Patient is awake and alert Nonfocal neuro exam Pleasant cooperative Communicative Currently on room air Looks euvolemic Abdomen soft Pleasant during my evaluation Deranged disorganized thinking Patient is not paranoid at the time of evaluation Speech is normal not pressured Lack of insight Data 04/21/23 05:28 04/21/23 05:28 Micro: Microbiology 04/19/23 21:40 Urine Culture - Final Urine,Clean Catch A&P Assessment and plan (1) Delusion: (2) Acute UTI: (3) Acute alteration in mental status: (4) Memory changes: Plan Metabolic encephalopathy acute delirium with possible underlying dementia Mentation is improving Suffering from UTI Patient will be evaluated by psychiatrist again to see whether she is safe to return home versus need [facility] at this point, Discontinue IV antibiotics and change to levofloxacin Continue paroxetine, antipsychotics will add low-dose Zyprexa Attestations Medical Necessity Statement*: Continue medical management Diagnoses Delusion F22 Acute UTI N39.0 Acute alteration in mental status R41.82 Memory changes R41.3
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
[2023-04-22] MEDS: amoxicillin-clav 875-125 mg Tablet 1 TAB PO (18:27)
[2023-04-22 20:00] VITALS: BP 147/74; PULSE 72; RESP 19; TEMP 36.6; O2SAT 93
[2023-04-22] MEDS: OLANZapine 5 mg TABLET PO (20:19)
[2023-04-23] VITALS: BP 134/63; PULSE 79; RESP 18; TEMP 36.6; O2SAT 93
[2023-04-23 04:00] VITALS: BP 129/60; PULSE 66; RESP 15; TEMP 36.6; O2SAT 92
[2023-04-23 07:55] VITALS: BP 150/78; PULSE 72; RESP 18; TEMP 36.4; O2SAT 93
[2023-04-23] MEDS: atorvastatin 40 mg Tablet PO (08:19)
[2023-04-23] MEDS: PARoxetine 20 mg Tablet 10 MG PO ×2 (08:19→18:27)
[2023-04-23] MEDS: amoxicillin-clav 875-125 mg Tablet 1 TAB PO ×2 (08:19→18:27)
[2023-04-23] MEDS: amlodipine 5 mg Tablet PO (08:19)
[2023-04-23] MEDS: famotidine 20 mg Tablet 40 MG PO ×2 (08:19→18:27)
--- NOTE | 2023-04-23 10:52 | PM.PN ---
Subjective Subjective: Morning patient is stating that she is agreeable for [facility] placement for a few weeks I tried to call her nephew it was going on voicemail She is not endorsing any new complaints She was able to rest last night As per the nursing staff Brown really helped with her symptoms Vitals/I&O/Wt Last Vital Signs Temp 97.5 F L 04/23/23 07:55 Pulse 72 04/23/23 07:55 Resp 18 04/23/23 07:55 BP 150/78 04/23/23 07:55 Pulse Ox 93 04/23/23 07:55 O2 Del Method Room Air 04/23/23 07:55 04/22/23 04/23/23 04/23/23 22:59 06:59 14:59 Intake Total 240 / 720 480 / 480 Balance 240 / 720 480 / 480 Physical Exam Narrative: Nonfocal neuro exam Pleasant and cooperative She was able to use a walker GCS 15 Euvolemic Pleasant and cooperative Normal speech S1, S2 No audible stridor or wheezing Data 04/21/23 05:28 04/21/23 05:28 A&P Assessment and plan (1) Delusional disorder: (2) Acute UTI: (3) Acute alteration in mental status: (4) Memory changes: (5) Knee osteoarthritis: Plan Metabolic encephalopathy improving Delirium: Resolving As per psychiatrist patient will need [facility] placement for a few weeks UTI: Resolved Continue p.o. antibiotics for next 3 days Awaiting [facility] placement No need of IV fluids or IV antibiotics at this point Added Brown We may discontinue one-to-one supervision if she remains stable today Attestations Medical Necessity Statement*: Continue medical management Diagnoses Delusional disorder F22 Acute UTI N39.0 Acute alteration in mental status R41.82 Memory changes R41.3 Knee osteoarthritis M17.9
--- NOTE | 2023-04-23 11:02 | PC.SOCIAL ---
Pg 2 IMM Explained to pt's DPOA,Chace Roa Pg 2 IMM. No questions voiced. Provided pt a copy. Initialed, dated, & timed a copy & placed in chart.
[2023-04-23 12:00] VITALS: BP 136/74; PULSE 77; RESP 20; TEMP 36.3; O2SAT 95
[2023-04-23 16:00] VITALS: BP 137/77; PULSE 87; RESP 20; TEMP 36.6; O2SAT 93
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
[2023-04-23 20:00] VITALS: BP 116/65; PULSE 74; RESP 17; TEMP 36.3; O2SAT 91
[2023-04-23] MEDS: OLANZapine 5 mg TABLET PO (20:08)
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
[2023-04-24] VITALS: BP 126/71; PULSE 69; RESP 19; TEMP 36.9; O2SAT 90
[2023-04-24] MEDS: heparin 5,000 unit/mL INJ 1 mL 5000 UNIT SUBCUT ×2 (01:22→11:34)
[2023-04-24 04:00] VITALS: BP 174/70; PULSE 73; RESP 16; TEMP 36.4; O2SAT 92
[2023-04-24 07:18] VITALS: BP 141/94; PULSE 87; RESP 16; TEMP 36.8; O2SAT 93
[2023-04-24 07:58] VITALS: PULSE 80; RESP 18
[2023-04-24] MEDS: famotidine 20 mg Tablet 40 MG PO ×2 (08:37→17:40)
[2023-04-24] MEDS: atorvastatin 40 mg Tablet PO (08:37)
[2023-04-24] MEDS: amoxicillin-clav 875-125 mg Tablet 1 TAB PO ×2 (08:37→17:39)
[2023-04-24] MEDS: PARoxetine 20 mg Tablet 10 MG PO ×2 (08:37→17:39)
[2023-04-24] MEDS: amlodipine 5 mg Tablet PO (08:38)
[2023-04-24 09:27] LABS: Alanine Aminotransferase 31 U/L (0-33); Albumin Level 3.4 g/dL (3.5-5.2); Alkaline Phosphatase 116 U/L (35-105); Aspartate Amino Transferase 39 U/L (0-32); Blood Urea Nitrogen 17 mg/dL (8-23); Calcium 8.4 mg/dL (8.5-10.5); Carbon Dioxide 24 mmol/L (22-29); Chloride 103 mmol/L (98-107); Globulin 3.2 g/dL (1.3-4.6); Glucose 120 mg/dL (65-115); Osmolality Calculated 289 mOsm/kg (285-295); Sodium 138 mmol/L (136-145); Total Bilirubin 0.4 mg/dL (0.15-1.2); Total Protein 6.6 g/dL (6.6-8.7)
[2023-04-24 09:33] LABS: Anion Gap 15.3 (5-19); Potassium 4.3 mmol/L (3.5-5.1)
[2023-04-24 10:46] VITALS: BP 118/68; PULSE 73; RESP 18; TEMP 36.9; O2SAT 94
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
--- NOTE | 2023-04-24 14:14 | P.TS_ITS ---
Transfer Summary Providers Date of Admission: 04/20/23 17:38 Date of Discharge/Transfer: 04/24/23 Attending Provider at Admission: Virginia Cohen MD Attending Provider at Transfer: Estela Martinez MD Primary Care Provider: JULIA Santiago Transfer Plans: Anticipated date of transfer: 04/24/23 . Diagnoses at Discharge Discharge Diagnosis (1) Knee osteoarthritis: Status: Acute (2) Delusional disorder: Status: Acute (3) Acute UTI: Status: Acute (4) Acute alteration in mental status: Status: Acute (5) Wedge compression fracture of L1 vertebra: Status: Chronic (6) Essential (primary) hypertension: Status: Chronic (7) Restless leg: Status: Chronic Reason for Visit Reason for Visit HALLUCINATIONS Hospital Course Hospital Course 82-year-old female who was admitted for management of metabolic encephalopathy related to UTI, she also suffers from delusional disorder paranoia, she was seen by psychiatrist who recommended low-dose antipsychotics, she did well with Zyprexa, blood pressure has remained stable we will discontinue amlodipine at the time of discharge, for her UTI urine culture did not show any growth however she was treated with Augmentin, she remained afebrile, mentation is improving gradually however she is still paranoid that someone is trying to sell her house, medical DPOA is her nephew who was at the bedside on day of discharge. Patient is excepted at inpatient [facility] she will be transferred with stable hemodynamics. Please see admitting note for further details about her admitting complaints when server developer were called. Machine Operator Assistant did verify that patient was not coherent and she was confabulating. Physical Exam Narrative: NIH 0 GCS 15 Nonfocal neuro exam S1, S2 Doing well on room air TS Data Studies Completed and Pending Pending at discharge Category Date Time Status Blood Culture Stat Lab 04/19/23 22:45 Results Labs from last 24 hours 04/24/23 08:55 Sodium 138 Potassium 4.3 Chloride 103 Carbon Dioxide 24 Anion Gap 15.3 BUN 17 Creatinine 1.0 H GFR Calculation Not Reportable Glucose 120 H Calculated Osmolality 289 Calcium 8.4 L Total Bilirubin 0.4 AST 39 H ALT 31 Alkaline Phosphatase 116 H Total Protein 6.6 Albumin 3.4 L Globulin 3.2 Completed Studies During Hospitalization Category Date Time Status XR chest 1V portable [id number] Stat Exams 04/19/23 20:54 Completed Laboratory Last Values WBC 5.5 10^3/uL (4.0-10.0) 04/21/23 05:28 RBC 4.46 10^6/uL (4.1-5.3) 04/21/23 05:28 Hgb 13.1 g/dL (11.5-15.3) 04/21/23 05:28 Hct 42.2 % (37.0-47.0) 04/21/23 05:28 MCV 94.6 fl (81-99) 04/21/23 05:28 MCH 29.4 pg (28.0-34.0) 04/21/23 05:28 MCHC 31.0 g/dL (30.0-36.0) 04/21/23 05:28 RDW 12.4 % (12.1-15.1) 04/21/23 05:28 Plt Count 249 10^3/cmm (130-400) 04/21/23 05:28 MPV 11.6 fL (7.4-10.4) H 04/21/23 05:28 Neut % (Auto) 63.0 % 04/21/23 05:28 Lymph % (Auto) 22.4 % 04/21/23 05:28 [place] % (Auto) 9.3 % 04/21/23 05:28 Eos % (Auto) 4.0 % 04/21/23 05:28 Baso % (Auto) 0.9 % 04/21/23 05:28 Neut # (Auto) 3.47 10^3/uL (1.8-7.7) 04/21/23 05:28 Lymph # (Auto) 1.2 10^3/uL (0.8-4.8) 04/21/23 05:28 [place] # (Auto) 0.5 10^3/uL (0.2-0.9) 04/21/23 05:28 Eos # (Auto) 0.2 10^3/uL (0.0-0.8) 04/21/23 05:28 Baso # (Auto) 0.1 10^3/uL (0.0-0.1) 04/21/23 05:28 Nucleated RBC % (auto) 0 % 04/21/23 05:28 Nucleated RBCs # 0.0 /100WBC 04/21/23 05:28 Sodium 138 mmol/L (136-145) 04/24/23 08:55 Potassium 4.3 mmol/L (3.5-5.1) 04/24/23 08:55 Chloride 103 mmol/L (98-107) 04/24/23 08:55 Carbon Dioxide 24 mmol/L (22-29) 04/24/23 08:55 Anion Gap 15.3 (5-19) 04/24/23 08:55 BUN 17 mg/dL (8-23) 04/24/23 08:55 Creatinine 1.0 mg/dL (0.5-0.9) H 04/24/23 08:55 GFR Calculation Not Reportable 04/24/23 08:55 Glucose 120 mg/dL (65-115) H 04/24/23 08:55 Calculated Osmolality 289 mOsm/kg (285-295) 04/24/23 08:55 Lactic Acid 1.1 mmol/L (0.5-2.2) 04/20/23 01:00 Calcium 8.4 mg/dL (8.5-10.5) L 04/24/23 08:55 Magnesium 2.2 mg/dL (1.7-2.3) 04/22/23 09:12 Total Bilirubin 0.4 mg/dL (0.15-1.2) 04/24/23 08:55 AST 39 U/L (0-32) H 04/24/23 08:55 ALT 31 U/L (0-33) 04/24/23 08:55 Alkaline Phosphatase 116 U/L (35-105) H 04/24/23 08:55 Total Protein 6.6 g/dL (6.6-8.7) 04/24/23 08:55 Albumin 3.4 g/dL (3.5-5.2) L 04/24/23 08:55 Globulin 3.2 g/dL (1.3-4.6) 04/24/23 08:55 Vitamin B12 275 pg/mL (232-1245) 04/21/23 05:28 Procalcitonin 0.06 ng/mL (0-0.5) 04/20/23 01:00 TSH 2.55 uIU/mL (0.27-4.20) 04/20/23 01:00 Urine Color Yellow (Yellow) 04/19/23 21:40 Urine Appearance Cloudy (CLEAR) A 04/19/23 21:40 Urine pH 5 (5-7) 04/19/23 21:40 Ur Specific [place] 1.020 (1.005-1.030) 04/19/23 21:40 Urine Protein 1+ (Negative) H 04/19/23 21:40 Urine Glucose (UA) Norm (Normal) 04/19/23 21:40 Urine Ketones 1+ (Negative) H 04/19/23 21:40 Urine Blood Neg (Negative) 04/19/23 21:40 Urine Nitrate Negative (Negative) 04/19/23 21:40 Urine Bilirubin 1+ (Negative) H 04/19/23 21:40 Urine Urobilinogen Norm mg/dL (Negative) 04/19/23 21:40 Ur Leukocyte Esterase 2+ (Negative) H 04/19/23 21:40 Urine RBC 0-4 /hpf (0-2) H 04/19/23 21:40 Urine WBC >100 /hpf (0-5) H 04/19/23 21:40 Ur Squamous Epith Cells 15-25 /hpf (0-5) H 04/19/23 21:40 Amorphous Sediment Not Reportable 04/19/23 21:40 Urine Bacteria Trace /hpf (NONE) 04/19/23 21:40 Salicylates < 0.3 mg/dL (3-10) L 04/19/23 21:36 Urine Opiates Screen Negative ng/mL (Negative) 04/19/23 21:40 Acetaminophen < 5.0 ug/mL (10-30) L 04/19/23 21:36 Ur Barbiturates Screen Negative ng/mL (Negative) 04/19/23 21:40 Ur Phencyclidine Scrn Negative ng/mL (Negative) 04/19/23 21:40 Ur Amphetamines Screen Negative ng/mL (Negative) 04/19/23 21:40 U Benzodiazepines Scrn Negative ng/mL (Negative) 04/19/23 21:40 Urine Cocaine Screen Negative ng/mL (Negative) 04/19/23 21:40 U Marijuana (THC) Screen Negative ng/mL (Negative) 04/19/23 21:40 Ethyl Alcohol < 10 mg/dL (0-10) 04/19/23 21:36 Radiology Impressions Chest X-Ray 04/19/23 20:54 IMPRESSION: No acute findings. Recent Clincial Data Last Vital Signs Temp 98.5 F 04/24/23 10:46 Pulse 73 04/24/23 10:46 Resp 18 04/24/23 10:46 BP 118/68 04/24/23 10:46 Pulse Ox 94 04/24/23 10:46 O2 Del Method Room Air 04/24/23 10:46 Vital Signs Temp Pulse Resp BP Pulse Ox O2 Del Method 04/24/23 10:46 98.5 F 73 18 118/68 94 Room Air 04/24/23 07:58 80 18 04/24/23 07:18 98.2 F 87 16 141/94 93 04/24/23 04:00 97.6 F 73 16 174/70 92 Intake & Output/Weight 04/22/23 04/23/23 04/24/23 04/25/23 06:59 06:59 06:59 06:59 Intake Total 2554 / 2554 720 / 720 840 / 840 50 / 50 Balance 2554 / 2554 720 / 720 840 / 840 50 / 50 Vitals Last Vital Signs Temp 98.5 F 04/24/23 10:46 Pulse 73 04/24/23 10:46 Resp 18 04/24/23 10:46 BP 118/68 04/24/23 10:46 Pulse Ox 94 04/24/23 10:46 O2 Del Method Room Air 04/24/23 10:46 TS Medications Medications Acetaminophen (Acetaminophen 325 Mg Tablet) 650 mg PO Q6H PRN PRN Reason: Mild/Mod Pain Or Temp >/= 101 Amlodipine Besylate (Amlodipine 5 Mg Tablet) 5 mg PO DAILY [facility] Last Admin: 04/24/23 08:38 Dose: 5 mg Amoxicillin/Clavulanate Potassium (Amoxicillin-Clav 875-125 Mg Tablet) 1 tab PO BID [facility]; Protocol Last Admin: 04/24/23 08:37 Dose: 1 tab Aspirin (Aspirin 81 Mg Ec Tablet) 81 mg PO ONCE [facility] Atorvastatin Calcium (Atorvastatin 40 Mg Tablet) 40 mg PO DAILY [facility] Last Admin: 04/24/23 08:37 Dose: 40 mg Famotidine (Famotidine 20 Mg Tablet) 40 mg PO BID [facility] Last Admin: 04/24/23 08:37 Dose: 40 mg Heparin Sodium (Porcine) (Heparin 5,000 Unit/Ml Inj 1 Ml) 5,000 unit SUBCUT Q12H [facility] Last Admin: 04/24/23 11:34 Dose: 5,000 unit Olanzapine (Olanzapine 10 Mg Tablet) 10 mg PO BEDTIME [facility] Ondansetron HCl (Ondansetron 2 Mg/Ml Sdv 2 Ml) 4 mg IVP Q8H PRN PRN Reason: vomiting, or N/V if npo Paroxetine HCl (Paroxetine 20 Mg Tablet) 10 mg PO BID [facility] Last Admin: 04/24/23 08:37 Dose: 10 mg Discontinued Medications Ceftriaxone Sodium 1,000 mg/ (Sodium Chloride) 50 mls @ 100 mls/hr IV ONCE ONE; Protocol Stop: 04/19/23 23:31 Last Infusion: 04/20/23 00:23 Dose: Infused Sodium Chloride (Sodium Chloride 0.9%) 1,000 mls @ 30 mls/hr IV .Q24H [facility] Last Infusion: 04/21/23 20:07 Dose: Infused Ceftriaxone Sodium 1,000 mg/ (Sodium Chloride) 50 mls @ 100 mls/hr IV Q24H [facility]; Protocol Last Infusion: 04/22/23 01:59 Dose: Infused Magnesium Sulfate (Magnesium Sulfate Premix) 2 gm in 50 mls @ 50 mls/hr IV ONCE ONE Stop: 04/21/23 20:38 Last Infusion: 04/21/23 21:15 Dose: Infused Levofloxacin (Levofloxacin 750 Mg Tablet) 750 mg PO DAILY@0600 [facility]; Protocol Olanzapine (Olanzapine 5 Mg Tablet) 5 mg PO BEDTIME [facility] Last Admin: 04/23/23 20:08 Dose: 5 mg Potassium Chloride (Potassium Chloride Er 20 Meq Tablet) 20 meq PO ONCE ONE Stop: 04/20/23 11:30 Last Admin: 04/20/23 14:02 Dose: Not Given Potassium Chloride (Potassium Chloride Er 20 Meq Tablet) 20 meq PO ONCE ONE Stop: 04/20/23 14:01 Last Admin: 04/20/23 14:18 Dose: 20 meq Allergies propranolol [From Inderal LA] Allergy (Unknown, Verified 04/19/23 20:39) Unknown Home Medications acetaminophen 325 mg tablet (Tylenol) 325 mg PO QID PRN Pain 10/16/19 [History Confirmed 04/20/23] aspirin 81 mg tablet,delayed release 81 mg PO ONCE 10/16/19 [History Confirmed 04/20/23] amlodipine 5 mg tablet 5 mg PO QDAY #90 tabs 03/28/23 [Rx Confirmed 04/20/23] atorvastatin 40 mg tablet 40 mg PO QDAY #90 tabs 03/28/23 [Rx Confirmed 04/20/23] famotidine 40 mg tablet 40 mg PO BID #180 tabs 03/28/23 [Rx Confirmed 04/20/23] furosemide 20 mg tablet (Lasix) 20 mg PO QAM #90 tabs 03/28/23 [Rx Confirmed 04/20/23] olmesartan 40 mg tablet (Benicar) 40 mg PO QDAY #90 tabs 03/28/23 [Rx Confirmed 04/20/23] paroxetine HCl 20 mg tablet 10 mg PO BID #90 tabs 03/28/23 [Rx Confirmed 04/20/23] Discharge Plan Discharge Patient Disposition: Xfer Psychiatric Hosp Condition: Stable Prescriptions: New amoxicillin-pot clavulanate 875-125 mg Tablet 1 tab PO BID Qty: 6 0RF olanzapine 10 mg Tablet 10 mg PO BEDTIME Qty: 60 0RF Continued aspirin 81 mg tablet,delayed release (DR/EC) 81 mg PO ONCE acetaminophen [Tylenol] 325 mg tablet 325 mg PO QID PRN (Reason: Pain) atorvastatin 40 mg tablet 40 mg PO QDAY Qty: 90 0RF Rx Instructions: bedtime famotidine 40 mg tablet 40 mg PO BID Qty: 180 0RF Rx Instructions: Stop Protonix olmesartan [Benicar] 40 mg tablet 40 mg PO QDAY Qty: 90 0RF paroxetine HCl 20 mg tablet 10 mg PO BID Qty: 90 0RF Discontinued amlodipine 5 mg tablet 5 mg PO QDAY Qty: 90 0RF furosemide [Lasix] 20 mg tablet 20 mg PO QAM Qty: 90 0RF Discharge Orders: Discharge Order (Routine); Ordered 04/24/23 Ordered By: Estela Martinez Referrals: Mustapha Claros FNP-C [Primary Care Provider] - Discharge Diet: Cardiac Discharge Activity: Increase activity as tolerated Patient Instructions: Opioid Safety Transfer Attestations Time Spent in Transfer Care: greater than 30 min Quality Metrics Clinical Quality Measures [ No reported AMI, CVA or VTE this stay] Coding Level of Care Code Acute Code for Chg Fwd Diagnoses Knee osteoarthritis M17.9 Delusional disorder F22 Acute UTI N39.0 Acute alteration in mental status R41.82 Wedge compression fracture of L1 vertebra S32.010A Essential (primary) hypertension I10 Restless leg G25.81
[2023-04-24 16:00] VITALS: BP 119/70; PULSE 76; RESP 17; TEMP 36.8; O2SAT 90
--- NOTE | 2023-04-24 16:43 | PC.NURSE ---
Report given to Jenifer at [facility] via phone at 1644. [phone]. [address]
--- NOTE | 2023-04-24 17:27 | W.PM.NPUPNS ---
Subjective NPU Subjective: 82-year-old white female admitted with acute mental status changes along with the presence of paranoid delusions and recent memory loss. No acute changes noted today. She continued to perseverate regarding ideas of persecution and paranoia. She had reported tolerating her nighttime medicine without any complaints. Mental Status Exam MSE Comments: Pleasant and casually dressed female who appeared her stated age with fair eye contact and appeared to be a good historian. She was lying in the hospital bed and appeared in mild distress. Her mood was described as okay.. Her affect was anxious and preoccupied today. Her speech was normal in regards to rate, rhythm and prosody with no word finding difficulties. Her thought process was linear and logical and goal directed. Her thought content showed no evidence of SI/HI. She did appear to be responding to internal stimuli. There was clear evidence of delusional thinking and ideas of reference with some paranoia with misinterpretation of auditory stimulus. She was alert and oriented x3 and situation. Abstraction was intact. Recent and remote memory appeared poor. Vitals/I&O/Wt Last Vital Signs Temp 98.3 F 04/24/23 16:00 Pulse 76 04/24/23 16:00 Resp 17 04/24/23 16:00 BP 119/70 04/24/23 16:00 Pulse Ox 90 04/24/23 16:00 O2 Del Method Room Air 04/24/23 16:00 04/24/23 04/24/23 04/24/23 06:59 14:59 22:59 Intake Total 50 / 50 Balance 50 / 50 Data NPU 04/21/23 05:28 04/24/23 08:55 A&P Assessment and plan (1) Delusional disorder: (2) Knee osteoarthritis: (3) Acute UTI: (4) Acute alteration in mental status: (5) Wedge compression fracture of L1 vertebra: (6) Essential (primary) hypertension: (7) Restless leg: Plan transfer to geriatric psychiatry facility. Continue zyprexa 5mg at night. Attestations NPU Medical Necessity Statement*: Transfer to inpatient geriatric psychiatric facility on 96 hour hold. Coding Level of Care Code Acute Code for [facility] Fw Diagnoses Delusional disorder F22 Knee osteoarthritis M17.9 Acute UTI N39.0 Acute alteration in mental status R41.82 Wedge compression fracture of L1 vertebra S32.010A Essential (primary) hypertension I10 Restless leg G25.81
== END 2023-04-24 19:04 | DRG 689 ==
LOC: ER 23:35 → MEDSURG 23:57
PROVIDERS: Internal Medicine; Admitting Provider Internal Medicine; Emergency Provider Emergency Medicine; PCP Nurse Practitioner; Visit Provider Internal Medicine
DX: N39.0 Urinary tract infection, site not specified (principal); G93.41 Metabolic encephalopathy; I50.32 Chronic diastolic (congestive) heart failure; F22 Delusional disorders; Z79.82 Long term (current) use of aspirin; F41.8 Other specified anxiety disorders; I11.0 Hypertensive heart disease with heart failure; E78.2 Mixed hyperlipidemia; K21.9 Gastro-esophageal reflux disease without esophagitis; G25.81 Restless legs syndrome
CPT/HCPCS: 36415; 71045; 80053; 80306; 80307; 81001; 82607; 83605; 83735; 84145; 84443; 85025; 87040; 87086; 93005; 96372; 97167; 99285; G0378; J0696; J1644; J3475; J7030

== ENCOUNTER 2023-05-20 01:49 | Emergency (ER) | payer MEDICARE, OTHER, SELFPAY ==
[2023-05-20 01:52] VITALS: BP 172/94; PULSE 90; RESP 16; TEMP 36.8; O2SAT 93; BMI 32.9
--- NOTE | 2023-05-20 01:56 | ED.C_ITS ---
Documented by User: Pankaj Aguayo MD 05/20/23 05:20 HPI - Psych General: Chief Complaint: Psychiatric Symptoms Stated Complaint: paranoia Time Seen by Provider: 05/20/23 01:50 Source: patient and EMS Mode of arrival: EMS Limitations: no limitations History of Present Illness: 82-year-old female presents here with EMS along with police. Police states they been called multiple times out to her residence over the week for different complaints and patient been extremely paranoid she tells me she thinks that both of her neighbors are trying to kill her they have been turning Into Her Home. She Lives at Home Alone Does Not Have Any Family near. She Had a Recent Stay at [facility] for Same. Associated symptoms: Reports delusions Review of Systems Const: Denies: fever(s), chills, body aches or change in appetite Eyes: Denies: blurry vision or eye discomfort ENMT: Denies: throat pain or dental pain Card: Denies: chest pain Resp: Denies: dyspnea GI: Denies: abdominal pain, nausea, vomiting or diarrhea Musc: Denies: neck pain or back pain Skin/Breast: Denies: rash Neuro: Denies: headache(s) Psych: Reports: paranoia PFS ED PFSH: Medical History Acid reflux Congenital shortening of left lower limb Essential (primary) hypertension Memory changes Mixed anxiety and depressive disorder Mixed hyperlipidemia Neuropathic arthropathy OA (osteoarthritis of spine) Restless leg Vitamin D insufficiency Wedge compression fracture of L1 vertebra Surgical History History of cataract surgery Family History Other Arthritis Cancer Heart disease Social History Smoking and tobacco status: never smoked Second hand smoke exposure: No Smoking risk assessment/counseling performed?: No Alcohol intake: never Desire information about alcohol rehabilitation?: No Counseling given: No Substance/Drug Use: never Desire information about substance/drug rehabilitation?: No Counseling given: No Caregiver/support person: No Lives independently: Yes Household members: family Housing: House Marital status: / Current occupational status: retired Do you think of yourself as: Straight/Heterosexual Current gender identity: Female Physical Exam Const: COMMON NORMALS: patient oriented x3 HENMT: COMMON NORMALS: normocephalic and atraumatic HEAD & SCALP: normocephalic and atraumatic Eye: COMMON NORMALS: conjunctivae normal CONJUNCTIVA: Yes conjunctivae no rmal Neck/C-Spine: COMMON NORMALS: full ROM and supple Chest: COMMONS NORMALS: normal inspection of the chest Resp: COMMON NORMALS: normal respiratory effort Cardio: COMMON NORMALS: regular rate, regular rhythm and No murmurs present (Cardio) RATE: regular rate RHYTHM: regular rhythm GI: INSPECTION: Yes normal to inspection Extremity: COMMON NORMALS: normal to inspection Neuro: COMMON NORMALS: patient oriented x3, moves all extremities and no focal motor deficits Psych: COMMON NORMALS: cooperative ATTITUDE: Yes paranoid THOUGHT CONTENT: Yes delusions Skin: COMMON NORMALS: no rashes or lesions noted and no wounds GENERAL SKIN EXAM: no rashes or lesions noted Course Vital Signs: Vital signs: Vital Signs Temperature 98.3 F 05/20/23 01:52 Pulse Rate 82 05/20/23 13:22 Respiratory Rate 18 05/20/23 13:22 Blood Pressure 143/71 05/20/23 13:22 Pulse Oximetry 95 05/20/23 13:22 Oxygen Delivery Me thod Room Air 05/20/23 11:13 [facility] - Psych Medical Decision Making Patient presents here with paranoia she believes that her neighbors have been trying to kill her and she is having irrational thoughts she is called the police multiple times patient is placed under 96-hour hold we are seeking geriatric psych transfer patient's care turned over to Dr. Gallego. Lab Data 05/20/23 02:08 05/20/23 02:08 Laboratory Results WBC 8.7 10^3/uL (4.0-10.0) 05/20/23 02:08 RBC 4.37 10^6/uL (4.1-5.3) 05/20/23 02:08 Hgb 12.8 g/dL (11.5-15.3) 05/20/23 02:08 Hct 39.9 % (37.0-47.0) 05/20/23 02:08 MCV 91.3 fl (81-99) 05/20/23 02:08 MCH 29.3 pg (28.0-34.0) 05/20/23 02:08 MCHC 32.1 g/dL (30.0-36.0) 05/20/23 02:08 RDW 12.6 % (12.1-15.1) 05/20/23 02:08 Plt Count 362 10^3/cmm (130-400) 05/20/23 02:08 MPV 9.8 fL (7.4-10.4) 05/20/23 02:08 Neut % (Auto) 69.0 % 05/20/23 02:08 Lymph % (Auto) 15.6 % 05/20/23 02:08 [place] % (Auto) 12.6 % 05/20/23 02:08 Eos % (Auto) 1.7 % 05/20/23 02:08 Baso % (Auto) 0.8 % 05/20/23 02:08 Neut # (Auto) 6.01 10^3/uL (1.8-7.7) 05/20/23 02:08 Lymph # (Auto) 1.4 10^3/uL (0.8-4.8) 05/20/23 02:08 [place] # (Auto) 1.1 10^3/uL (0.2-0.9) H 05/20/23 02:08 Eos # (Auto) 0.2 10^3/uL (0.0-0.8) 05/20/23 02:08 Baso # (Auto) 0.1 10^3/uL (0.0-0.1) 05/20/23 02:08 Nucleated RBC % (auto) 0 % 05/20/23 02:08 Nucleated RBCs # 0.0 /100WBC 05/20/23 02:08 Sodium 138 mmol/L (136-145) 05/20/23 02:08 Potassium 4.0 mmol/L (3.5-5.1) 05/20/23 02:08 Chloride 101 mmol/L (98-107) 05/20/23 02:08 Carbon Dioxide 25 mmol/L (22-29) 05/20/23 02:08 Anion Gap 16.0 (5-19) 05/20/23 02:08 BUN 13 mg/dL (8-23) 05/20/23 02:08 Creatinine 1.1 mg/dL (0.5-0.9) H 05/20/23 02:08 GFR Calculation Not Reportable 05/20/23 02:08 Glucose 111 mg/dL (65-115) 05/20/23 02:08 Calculated Osmolality 287 mOsm/kg (285-295) 05/20/23 02:08 Calcium 8.8 mg/dL (8.5-10.5) 05/20/23 02:08 Total Bilirubin 0.5 mg/dL (0.15-1.2) 05/20/23 02:08 AST 15 U/L (0-32) 05/20/23 02:08 ALT < 5 U/L (0-33) 05/20/23 02:08 Alkaline Phosphatase 127 U/L (35-105) H 05/20/23 02:08 Total Protein 7.0 g/dL (6.6-8.7) 05/20/23 02:08 Albumin 3.4 g/dL (3.5-5.2) L 05/20/23 02:08 Globulin 3.6 g/dL (1.3-4.6) 05/20/23 02:08 TSH 4.97 uIU/mL (0.27-4.20) H 05/20/23 02:08 Urine Color Yellow (Yellow) 05/20/23 03:22 Urine Appearance Hazy (CLEAR) A 05/20/23 03:22 Urine pH 7 (5-7) 05/20/23 03:22 Ur Specific [place] 1.010 (1.005-1.030) 05/20/23 03:22 Urine Protein Neg (Negative) 05/20/23 03:22 Urine Glucose (UA) Norm (Normal) 05/20/23 03:22 Urine Ketones 1+ (Negative) H 05/20/23 03:22 Urine Blood Neg (Negative) 05/20/23 03:22 Urine Nitrate Negative (Negative) 05/20/23 03:22 Urine Bilirubin Neg (Negative) 05/20/23 03:22 Urine Urobilinogen Norm mg/dL (Negative) 05/20/23 03:22 Ur Leukocyte Esterase 1+ (Negative) H 05/20/23 03:22 Urine RBC Rare /hpf (0-2) 05/20/23 03:22 Urine WBC 0-4 /hpf (0-5) H 05/20/23 03:22 Ur Squamous Epith Cells 15-25 /hpf (0-5) H 05/20/23 03:22 Amorphous Sediment Not Reportable 05/20/23 03:22 Urine Bacteria 1+ /hpf (NONE) H 05/20/23 03:22 Urine Mucus Trace /hpf 05/20/23 03:22 Salicylates 1.2 mg/dL (3-10) L 05/20/23 02:08 Urine Opiates Screen Negative ng/mL (Negative) 05/20/23 03:22 Acetaminophen < 5.0 ug/mL (10-30) L 05/20/23 02:08 Ur Barbiturates Screen Negative ng/mL (Negative) 05/20/23 03:22 Ur Phencyclidine Scrn Negative ng/mL (Negative) 05/20/23 03:22 Ur Amphetamines Screen Negative ng/mL (Negative) 05/20/23 03:22 U Benzodiazepines Scrn Positive ng/mL (Negative) H 05/20/23 03:22 Urine Cocaine Screen Negative ng/mL (Negative) 05/20/23 03:22 U Marijuana (THC) Screen Negative ng/mL (Negative) 05/20/23 03:22 Ethyl Alcohol < 10 mg/dL (0-10) 05/20/23 02:08 SARS-CoV-2 Ag (Rapid) negative (Negative) 05/20/23 02:10 Discharge Plan Discharge Patient Disposition: Xfer Psychiatric Hosp Clinical Impression: Paranoid delusion Condition: Stable Coding Level of Care Code ED Director Emergency Services for Chg Fwd Documented by User: Milan Elkins DO 05/20/23 10:35 HPI - Psych General: Chief Complaint: Psychiatric Symptoms Stated Complaint: paranoia Time Seen by Provider: 05/20/23 01:50 PFSH ED PFSH: Medical History Acid reflux Congenital shortening of left lower limb Essential (primary) hypertension Memory changes Mixed anxiety and depressive disorder Mixed hyperlipidemia Neuropathic arthropathy OA (osteoarthritis of spine) Restless leg Vitamin D insufficiency Wedge compression fracture of L1 vertebra Surgical History History of cataract surgery Family History Other Arthritis Cancer Heart disease Social History Smoking and tobacco status: never smoked Second hand smoke exposure: No Smoking risk assessment/counseling performed?: No Alcohol intake: never Desire information about alcohol rehabilitation?: No Counseling given: No Substance/Drug Use: never Desire information about substance/drug rehabilitation?: No Counseling given: No Caregiver/support person: No Lives independently: Yes Household members: family Housing: House Marital status: / Current occupational status: retired Do you think of yourself as: Straight/Heterosexual Current gender identity: Female Course Vital Signs: Vital signs: Vital Signs Temperature 98.3 F 05/20/23 01:52 Pulse Rate 82 05/20/23 13:22 Respiratory Rate 18 05/20/23 13:22 Blood Pressure 143/71 05/20/23 13:22 Pulse Oximetry 95 05/20/23 13:22 Oxygen Delivery Me thod Room Air 05/20/23 11:13 [facility] - Psych Medical Decision Making Patient presents here with paranoia she believes that her neighbors have been trying to kill her and she is having irrational thoughts she is called the police multiple times patient is placed under 96-hour hold we are seeking geriatric psych transfer patient's care turned over to Dr. Elkins. Likely in psychiatric facility in [facility] called back and I did accept the patient in transfer. Lab Data 05/20/23 02:08 05/20/23 02:08 Laboratory Results WBC 8.7 10^3/uL (4.0-10.0) 05/20/23 02:08 RBC 4.37 10^6/uL (4.1-5.3) 05/20/23 02:08 Hgb 12.8 g/dL (11.5-15.3) 05/20/23 02:08 Hct 39.9 % (37.0-47.0) 05/20/23 02:08 MCV 91.3 fl (81-99) 05/20/23 02:08 MCH 29.3 pg (28.0-34.0) 05/20/23 02:08 MCHC 32.1 g/dL (30.0-36.0) 05/20/23 02:08 RDW 12.6 % (12.1-15.1) 05/20/23 02:08 Plt Count 362 10^3/cmm (130-400) 05/20/23 02:08 MPV 9.8 fL (7.4-10.4) 05/20/23 02:08 Neut % (Auto) 69.0 % 05/20/23 02:08 Lymph % (Auto) 15.6 % 05/20/23 02:08 [place] % (Auto) 12.6 % 05/20/23 02:08 Eos % (Auto) 1.7 % 05/20/23 02:08 Baso % (Auto) 0.8 % 05/20/23 02:08 Neut # (Auto) 6.01 10^3/uL (1.8-7.7) 05/20/23 02:08 Lymph # (Auto) 1.4 10^3/uL (0.8-4.8) 05/20/23 02:08 [place] # (Auto) 1.1 10^3/uL (0.2-0.9) H 05/20/23 02:08 Eos # (Auto) 0.2 10^3/uL (0.0-0.8) 05/20/23 02:08 Baso # (Auto) 0.1 10^3/uL (0.0-0.1) 05/20/23 02:08 Nucleated RBC % (auto) 0 % 05/20/23 02:08 Nucleated RBCs # 0.0 /100WBC 05/20/23 02:08 Sodium 138 mmol/L (136-145) 05/20/23 02:08 Potassium 4.0 mmol/L (3.5-5.1) 05/20/23 02:08 Chloride 101 mmol/L (98-107) 05/20/23 02:08 Carbon Dioxide 25 mmol/L (22-29) 05/20/23 02:08 Anion Gap 16.0 (5-19) 05/20/23 02:08 BUN 13 mg/dL (8-23) 05/20/23 02:08 Creatinine 1.1 mg/dL (0.5-0.9) H 05/20/23 02:08 GFR Calculation Not Reportable 05/20/23 02:08 Glucose 111 mg/dL (65-115) 05/20/23 02:08 Calculated Osmolality 287 mOsm/kg (285-295) 05/20/23 02:08 Calcium 8.8 mg/dL (8.5-10.5) 05/20/23 02:08 Total Bilirubin 0.5 mg/dL (0.15-1.2) 05/20/23 02:08 AST 15 U/L (0-32) 05/20/23 02:08 ALT < 5 U/L (0-33) 05/20/23 02:08 Alkaline Phosphatase 127 U/L (35-105) H 05/20/23 02:08 Total Protein 7.0 g/dL (6.6-8.7) 05/20/23 02:08 Albumin 3.4 g/dL (3.5-5.2) L 05/20/23 02:08 Globulin 3.6 g/dL (1.3-4.6) 05/20/23 02:08 TSH 4.97 uIU/mL (0.27-4.20) H 05/20/23 02:08 Urine Color Yellow (Yellow) 05/20/23 03:22 Urine Appearance Hazy (CLEAR) A 05/20/23 03:22 Urine pH 7 (5-7) 05/20/23 03:22 Ur Specific [place] 1.010 (1.005-1.030) 05/20/23 03:22 Urine Protein Neg (Negative) 05/20/23 03:22 Urine Glucose (UA) Norm (Normal) 05/20/23 03:22 Urine Ketones 1+ (Negative) H 05/20/23 03:22 Urine Blood Neg (Negative) 05/20/23 03:22 Urine Nitrate Negative (Negative) 05/20/23 03:22 Urine Bilirubin Neg (Negative) 05/20/23 03:22 Urine Urobilinogen Norm mg/dL (Negative) 05/20/23 03:22 Ur Leukocyte Esterase 1+ (Negative) H 05/20/23 03:22 Urine RBC Rare /hpf (0-2) 05/20/23 03:22 Urine WBC 0-4 /hpf (0-5) H 05/20/23 03:22 Ur Squamous Epith Cells 15-25 /hpf (0-5) H 05/20/23 03:22 Amorphous Sediment Not Reportable 05/20/23 03:22 Urine Bacteria 1+ /hpf (NONE) H 05/20/23 03:22 Urine Mucus Trace /hpf 05/20/23 03:22 Salicylates 1.2 mg/dL (3-10) L 05/20/23 02:08 Urine Opiates Screen Negative ng/mL (Negative) 05/20/23 03:22 Acetaminophen < 5.0 ug/mL (10-30) L 05/20/23 02:08 Ur Barbiturates Screen Negative ng/mL (Negative) 05/20/23 03:22 Ur Phencyclidine Scrn Negative ng/mL (Negative) 05/20/23 03:22 Ur Amphetamines Screen Negative ng/mL (Negative) 05/20/23 03:22 U Benzodiazepines Scrn Positive ng/mL (Negative) H 05/20/23 03:22 Urine Cocaine Screen Negative ng/mL (Negative) 05/20/23 03:22 U Marijuana (THC) Screen Negative ng/mL (Negative) 05/20/23 03:22 Ethyl Alcohol < 10 mg/dL (0-10) 05/20/23 02:08 SARS-CoV-2 Ag (Rapid) negative (Negative) 05/20/23 02:10 Discharge Plan Discharge Patient Disposition: Xfer Psychiatric Hosp Clinical Impression: Paranoid delusion Condition: Stable Coding Level of Care Code ED Director Emergency Services for 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
[2023-05-20 02:19] LABS: Basophils # 0.1 10^3/uL (0.0-0.1); Basophils % 0.8 %; Eosinophils # 0.2 10^3/uL (0.0-0.8); Eosinophils % 1.7 %; Hematocrit 39.9 % (37.0-47.0); Hemoglobin 12.8 g/dL (11.5-15.3); Lymphocytes # 1.4 10^3/uL (0.8-4.8); Lymphocytes % 15.6 %; Mean Corpuscular HGB Conc 32.1 g/dL (30.0-36.0); Mean Corpuscular Hemoglobin 29.3 pg (28.0-34.0); Mean Corpuscular Volume 91.3 fl (81-99); Mean Platelet Volume 9.8 fL (7.4-10.4); Monocytes # 1.1 10^3/uL (0.2-0.9); Monocytes % 12.6 %; Neutrophils # 6.01 10^3/uL (1.8-7.7); Nucleated Red Blood Cells % 0 %; Platelet Count 362 10^3/cmm (130-400); Red Blood Count 4.37 10^6/uL (4.1-5.3); Red Cell Distribution Width 12.6 % (12.1-15.1); White Blood Count 8.7 10^3/uL (4.0-10.0)
--- NOTE | 2023-05-20 02:21 | ECG_ITS ---
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 Measurements Intervals [place] Rate: 81 P: 66 LA: 148 QRS: 52 QRSD: 96 T: 51 QT: 386 QTc: 450 Interpretive Statements SINUS RHYTHM WITH FREQUENT ECTOPIC PREMATURE COMPLEXES POSSIBLE LEFT ATRIAL ENLARGEMENT [-0.1mV P-WAVE IN V1/V2] ABNORMAL RHYTHM ECG Compared to ECG 04/19/2023 22:32:51 T-wave abnormality no longer present Electronically Signed On 05-20-2023 22:39:14 CDT by Arcenio Roy M.D. [id number]
[2023-05-20 02:48] LABS: SARS Covid-2 Antigen negative (Negative)
[2023-05-20 02:49] LABS: Alanine Aminotransferase < 5 U/L (0-33); Albumin Level 3.4 g/dL (3.5-5.2); Alkaline Phosphatase 127 U/L (35-105); Aspartate Amino Transferase 15 U/L (0-32); Blood Urea Nitrogen 13 mg/dL (8-23); Calcium 8.8 mg/dL (8.5-10.5); Carbon Dioxide 25 mmol/L (22-29); Chloride 101 mmol/L (98-107); Globulin 3.6 g/dL (1.3-4.6); Glucose 111 mg/dL (65-115); Osmolality Calculated 287 mOsm/kg (285-295); Salicylate 1.2 mg/dL (3-10); Sodium 138 mmol/L (136-145); Thyroid Stimulating Hormone 4.97 uIU/mL (0.27-4.20); Total Bilirubin 0.5 mg/dL (0.15-1.2)
[2023-05-20 02:54] VITALS: RESP 18
[2023-05-20 02:56] LABS: Acetaminophen < 5.0 ug/mL (10-30); Alcohol Level < 10 mg/dL (0-10)
[2023-05-20 03:38] LABS: Amphetamines Screen Urine Negative (Negative); Barbiturates Screen Urine Negative (Negative); Benzodiazepines Screen Urine Positive (Negative); Cocaine Screen Urine Negative (Negative); Opiate Screen Urine Negative (Negative); PCP Screen Urine Negative (Negative); THC Screen Urine Negative (Negative)
[2023-05-20 03:41] LABS: Urine Appearance Hazy (CLEAR); Urine Color Yellow (Yellow); pH Urine 7 (5-7)
[2023-05-20 03:42] LABS: Add Urine Microscopic? YES; Bilirubin Urine Neg (Negative); Blood Urine Neg (Negative); Glucose Urine UA Norm (Normal); Ketones Urine 1+ (Negative); Leukocyte Esterase Urine 1+ (Negative); Nitrate Urine Negative (Negative); Protein Urine Neg (Negative); Urobilinogen Urine Norm (Negative)
[2023-05-20 03:43] LABS: RBC Urine RARE /hpf (0-2); WBC Urine 0-4 /hpf (0-5)
[2023-05-20 03:44] LABS: Bacteria Urine 1+ /hpf; Squamous Epithelial Cell Urine 15-25 /hpf (0-5)
[2023-05-20 03:45] LABS: Add Urine Culture? No; Mucus Urine TRACE /hpf
[2023-05-20 06:15] VITALS: BP 149/76; PULSE 84; RESP 18
--- NOTE | 2023-05-20 08:07 | DCPLANNER ---
Becky with [facility] called back. They are reviewing chart and a provider will call back for a doctor to doctor report.
--- NOTE | 2023-05-20 09:28 | PC.NURSE ---
Patients DPOA/Guardian is taking her purse home.
[2023-05-20 11:13] VITALS: BP 143/71; PULSE 82; RESP 18; O2SAT 95
[2023-05-20 13:22] VITALS: BP 143/71; PULSE 82; RESP 18; O2SAT 95
--- NOTE | 2023-05-24 11:23 | DCPLANNER ---
swing manager was triggered to call patient due to no primary care physician - patient is established with Dr. Sandoval at [facility]
== END 2023-05-20 13:23 ==
PROVIDERS: Emergency Provider Emergency Medicine; PCP Family Medicine Adult Medicine
DX: F22 Delusional disorders (principal)
CPT/HCPCS: 80053; 80306; 80307; 81001; 84443; 85025; 87426; 93005; 99284

== ENCOUNTER 2023-12-19 14:49 | Emergency (ER) | payer MEDICARE, OTHER, SELFPAY ==
--- NOTE | 2023-12-19 14:50 | XR_ITS ---
WS: [id number] Portable AP upright chest, 12/19/2023 Clinical Data: cp Comparison: Portable chest, 04/19/2023 Findings: No nodules, masses or effusions are seen. The heart is normal. The pulmonary vascularity is not increased. No pneumonia or pneumothorax is seen. The aortic arch shows minimal tortuosity. There are monitor leads on the chest wall. Impression: Atherosclerosis.
[2023-12-19 14:53] VITALS: BP 157/75; PULSE 72; RESP 18; TEMP 36.7; O2SAT 91
--- NOTE | 2023-12-19 14:56 | ECG_ITS ---
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 Measurements Intervals [place] Rate: 72 P: 62 [place]: 152 QRS: 8 QRSD: 101 T: 39 QT: 406 QTc: 446 Interpretive Statements SINUS RHYTHM POSSIBLE LEFT ATRIAL ENLARGEMENT [-0.1mV P-WAVE IN V1/V2] Compared to ECG 05/20/2023 02:21:05 No significant changes Electronically Signed On 12-20-2023 17:30:02 COMMERCIAL LOAN MANAGER by Arcenio Roy M.D. [id number]
[2023-12-19 15:06] VITALS: BP 157/75; PULSE 72; RESP 20; O2SAT 93
--- NOTE | 2023-12-19 15:09 | ED_ITS ---
HPI - Chest Pain 2 General: Chief Complaint: Chest Pain Stated Complaint: chest pain, nausea Time Seen by Provider: 12/19/23 14:50 Source: patient and EMS Mode of arrival: EMS Limitations: no limitations History of Present Illness: 83-year-old female states she started lewis ving substernal chest pain yesterday has been constant nature she states it is now relieved she did receive nitro and aspirin in route. She denies any nausea or diaphoresis she denies any fevers or cough. She denies any worsening factors she is in no distress currently Associated symptoms: Deny abdominal pain, dyspnea, fever(s), nausea or vomiting Review of Systems 2 Const: Denies: fever(s) or chills ENMT: Denies: throat pain or dental pain Card: Reports: chest pain Resp: Denies: dyspnea GI: Denies: abdominal pain, nausea, vomiting or diarrhea Musc: Denies: neck pain or back pain Skin/Breast: Denies: rash Neuro: Denies: headache(s) PFSH ED 2 PFSH: Medical History Vitamin D insufficiency Memory changes Wedge compression fracture of L1 vertebra OA (osteoarthritis of spine) Neuropathic arthropathy Acid reflux Essential (primary) hypertension Mixed anxiety and depressive disorder Mixed hyperlipidemia Congenital shortening of left lower limb Restless leg Surgical History History of cataract surgery Family History Other Arthritis Cancer Heart disease Social History Smoking and tobacco/nicotine status: never used tobacco/nicotine Second hand smoke exposure: No Alcohol intake: never Substance/Drug Use: never Caregiver/support person: No Lives independently: Yes Housing: Assisted Living Facility Marital status: / Current occupational status: retired Do you think of yourself as: Straight/Heterosexual Current gender identity: Female Physical Exam 2 Const: COMMON NORMALS: no acute distress, patient oriented x3 and healthy appearing HENMT: COMMON NORMALS: normocephalic and atraumatic HEAD & SCALP: n ormocephalic and atraumatic Eye: COMMON NORMALS: Equal, round and reactive pupils present and EOMs intact bilaterally PUPIL: Yes Equal, round and reactive pupils present Neck/C-Spine: COMMON NORMALS: full ROM and supple Chest: COMMONS NORMALS: normal inspection of the chest and normal palpation of entire chest wall Resp: COMMON NORMALS: normal respiratory effort, No retractions, No use of accessory muscles and clear to auscultation bilaterally AUSCULTATION: clear to auscultation bilaterally Cardio: COMMON NORMALS: regular rate, regular rhythm and No murmurs present (Cardio) RATE: regular rate RHYTHM: regular rhythm GI: COMMON NORMALS: Normal to inspection, nondistended, normoactive bowel sounds present, Soft to palpation, non-tender and no masses PALPATION: Yes Soft to palpation Extremity: COMMON NORMALS: normal to inspection and full ROM Neuro: COMMON NORMALS: patient oriented x3, moves all extremities and no focal motor deficits Psych: COMMON NORMALS: mental status grossly normal, Normal thought process present and cooperative THOUGHT PROCESS: Normal thought process present Skin: COMMON NORMALS: no rashes or lesions noted and no wounds GENERAL SKIN EXAM: no rashes or lesions noted Course 2 Vital Signs: Vital signs: Vital Signs Temperature 98.1 F 12/19/23 14:53 Pulse Rate 72 12/19/23 15:06 Respiratory Rate 20 H 12/19/23 15:06 Blood Pressure 157/75 12/19/23 15:06 Pulse Oximetry 93 12/19/23 15:06 Oxygen Delivery Me thod Room Air 12/19/23 15:06 MDM - Chest Pain Medical Decision Making Patient presents here with chest pain is since resolved patient's been well- appearing here her 2-hour troponin was negative EKG showed no acute findings we will get her cardiology follow-up she has no signs acute coronary syndrome she is return if worsening she understands agrees to plan Medical Records I reviewed the patient's medical records. Lab Data I reviewed the patient's lab results. 12/19/23 15:00 12/19/23 15:00 Radiology Impressions Abdomen/Pelvis CT 12/19/23 15:41 IMPRESSION: 1. No acute findings. 2. Incidental findings above. Laboratory Results WBC 7.24 10^3/uL (3.29-11.43) 12/19/23 15:00 RBC 4.80 10^6/uL (3.85-5.65) 12/19/23 15:00 Hgb 13.80 g/dL (11.27-16.99) 12/19/23 15:00 Hct 43.3 % (36-47) 12/19/23 15:00 MCV 90.2 fl (85-98) 12/19/23 15:00 MCH 28.8 pg (27-33) 12/19/23 15:00 MCHC 31.9 g/dL (30-55) 12/19/23 15:00 RDW 13.4 % (12.1-15.1) 12/19/23 15:00 Plt Count 286 10^3/cmm (157-399) 12/19/23 15:00 MPV 10.2 fL (7.4-10.4) 12/19/23 15:00 Neut % (Auto) 56.3 % 12/19/23 15:00 Lymph % (Auto) 31.6 % 12/19/23 15:00 [place] % (Auto) 9.7 % 12/19/23 15:00 Eos % (Auto) 1.7 % 12/19/23 15:00 Baso % (Auto) 0.6 % 12/19/23 15:00 Neut # (Auto) 4.08 10^3/uL (1.8-7.7) 12/19/23 15:00 Lymph # (Auto) 2.3 10^3/uL (0.8-4.8) 12/19/23 15:00 [place] # (Auto) 0.7 10^3/uL (0.2-0.9) 12/19/23 15:00 Eos # (Auto) 0.1 10^3/uL (0.0-0.8) 12/19/23 15:00 Baso # (Auto) 0.0 10^3/uL (0.0-0.1) 12/19/23 15:00 Nucleated RBC % (auto) 0 % 12/19/23 15:00 Nucleated RBCs # 0.0 /100WBC 12/19/23 15:00 Sodium 140 mmol/L (136-145) 12/19/23 15:00 Potassium 3.7 mmol/L (3.5-5.1) 12/19/23 15:00 Chloride 99 mmol/L (98-107) 12/19/23 15:00 Carbon Dioxide 29 mmol/L (22-29) 12/19/23 15:00 Anion Gap 15.7 (5-19) 12/19/23 15:00 BUN 15 mg/dL (8-23) 12/19/23 15:00 Creatinine 1.1 mg/dL (0.5-0.9) H 12/19/23 15:00 GFR Calculation Not Reportable 12/19/23 15:00 Glucose 111 mg/dL (65-115) 12/19/23 15:00 Calculated Osmolality 292 mOsm/kg (285-295) 12/19/23 15:00 Calcium 9.4 mg/dL (8.5-10.5) 12/19/23 15:00 Total Bilirubin 0.4 mg/dL (0.15-1.2) 12/19/23 15:00 AST 15 U/L (0-32) 12/19/23 15:00 ALT 8 U/L (0-33) 12/19/23 15:00 Alkaline Phosphatase 105 U/L (35-105) 12/19/23 15:00 Troponin T Baseline 23 ng/L (0-10) H 12/19/23 15:00 Troponin T 120 Minute 22.45 ng/L (0-10) H 12/19/23 16:37 Delta Troponin T -0.55 ABS# (0-10) L 12/19/23 16:37 Total Protein 6.9 g/dL (6.6-8.7) 12/19/23 15:00 Albumin 3.9 g/dL (3.5-5.2) 12/19/23 15:00 Globulin 3.0 g/dL (1.3-4.6) 12/19/23 15:00 Lipase 208 U/L (13-60) H 12/19/23 15:00 All radiology interpretation(s) finalized by discharge EKG Data EKG 1: I personally reviewed and interpreted this EKG as follows: EKG interpretation date: 12/19/23 EKG interpretation time: 14:56 Interpretation: nsr hr [address] or t wave abnormalities qrs 101 qtc 430 EKG 2: I personally reviewed and interpreted this EKG as follows: EKG interpretation date: 12/19/23 EKG interpretation time: 17:04 Interpretation: nsr hr [address] or t wave abnormalities qrs 94 qtc 430 Discharge Plan Discharge Patient Disposition: Home Clinical Impression: Chest pain Condition: Stable Prescriptions: No Action aspirin 81 mg tablet,delayed release (DR/EC) 81 mg PO DAILY acetaminophen [Tylenol] 325 mg tablet 325 mg PO QID PRN (Reason: Pain) famotidine [Pepcid] 40 mg tablet 40 mg PO BID aripiprazole [Abilify] 5 mg tablet 5 mg PO DAILY Qty: 30 5RF Rx Instructions: stop risperidone 1mg at 20:00 and trazodone 50mg at 20:00 on EMR please furosemide [Lasix] 20 mg tablet 20 mg PO QAM Qty: 30 2RF levothyroxine 25 mcg tablet 25 mcg PO DAILY Qty: 90 0RF paroxetine HCl 20 mg tablet 10 mg PO BID Qty: 90 0RF acetaminophen 500 mg Tablet 500 mg PO Q6H PRN (Reason: Pain) atorvastatin 40 mg tablet 40 mg PO BEDTIME Rx Instructions: bedtime Benicar 40 mg tablet 40 mg PO DAILY Os-Noman 500 + D3 500 mg-15 mcg (600 unit) tablet 1 tab PO BID Discharge Orders: Discharge ED (Routine); Ordered 12/19/23 Ordered By: Pankaj Aguayo Referrals: Arcenio Roy MD [Physician] - 4-7 days Mustapha Claros FNP-C [Primary Care Provider] - 4-7 days Discharge Diet: Advance as tolerated Discharge Activity: Resume usual activity Patient Instructions: Chest Pain (ED) Coding Level of Care Code ED Traveling Sales Executive for 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
[2023-12-19 15:13] LABS: Basophils % 0.6 %; Eosinophils # 0.1 10^3/uL (0.0-0.8); Eosinophils % 1.7 %; Hematocrit 43.3 % (36-47); Lymphocytes # 2.3 10^3/uL (0.8-4.8); Lymphocytes % 31.6 %; Mean Corpuscular HGB Conc 31.9 g/dL (30-55); Mean Corpuscular Hemoglobin 28.8 pg (27-33); Mean Corpuscular Volume 90.2 fl (85-98); Mean Platelet Volume 10.2 fL (7.4-10.4); Monocytes # 0.7 10^3/uL (0.2-0.9); Monocytes % 9.7 %; Neutrophils # 4.08 10^3/uL (1.8-7.7); Neutrophils % 56.3 %; Nucleated Red Blood Cells % 0 %; Platelet Count 286 10^3/cmm (157-399); Red Cell Distribution Width 13.4 % (12.1-15.1); White Blood Count 7.24 10^3/uL (3.29-11.43)
[2023-12-19 15:36] LABS: Alanine Aminotransferase 8 U/L (0-33); Albumin Level 3.9 g/dL (3.5-5.2); Alkaline Phosphatase 105 U/L (35-105); Anion Gap 15.7 (5-19); Aspartate Amino Transferase 15 U/L (0-32); Blood Urea Nitrogen 15 mg/dL (8-23); Calcium 9.4 mg/dL (8.5-10.5); Carbon Dioxide 29 mmol/L (22-29); Chloride 99 mmol/L (98-107); Glucose 111 mg/dL (65-115); Lipase 208 U/L (13-60); Osmolality Calculated 292 mOsm/kg (285-295); Potassium 3.7 mmol/L (3.5-5.1); Sodium 140 mmol/L (136-145); Total Bilirubin 0.4 mg/dL (0.15-1.2); Total Protein 6.9 g/dL (6.6-8.7); Troponin(5th) Baseline 23 ng/L (0-10)
--- NOTE | 2023-12-19 15:41 | CTR_ITS ---
PROCEDURE INFORMATION: Exam: CT Abdomen And Pelvis With Contrast Exam date and time: 12/19/2023 3:50 PM Age: 83 years old Clinical indication: Nausea; Additional info: Pain TECHNIQUE: Imaging protocol: Computed tomography of the abdomen and pelvis with contrast. Radiation optimization: All CT scans at this facility use at least one of these dose optimization techniques: automated exposure control; mA and/or kV adjustment per patient size (includes targeted exams where dose is matched to clinical indication); or iterative reconstruction. Contrast material: OMNI 350; Contrast volume: 100 ml; Contrast route: INTRAVENOUS (IV); COMPARISON: CR XR hip BI 3-4V wo/w pel [id number] 02/23/2022 4:05 PM RADIATION DOSE METRICS: Total DLP (mGy-cm): 594 FINDINGS: Lungs: There is subsegmental atelectasis in the lung bases. Liver: The liver is normal. Gallbladder and bile ducts: Cholelithiasis is present. There is no sign of cholecystitis. There is no intrahepatic or extrahepatic bile duct dilation. Pancreas: The pancreas is unremarkable. Spleen: Splenic size is normal. There are scattered calcifications consistent with healed granulomas. Adrenal glands: The adrenal glands are unremarkable. Kidneys and ureters: The kidneys are unremarkable. No hydronephrosis or stones. No ureteral dilation. Stomach and bowel: The stomach is nondistended, limiting assessment of wall thickness. The small bowel is nondilated. Mild diverticulosis without evidence of diverticulitis at the hepatic flexure. There is mild distal descending and sigmoid colonic diverticulosis without evidence of diverticulitis. Appendix: The appendix is normal. Intraperitoneal space: There is no free air or significant intraperitoneal free fluid. Vasculature: There is moderate aortic atherosclerotic disease. The portal, splenic and superior mesenteric veins are patent. Lymph nodes: There is no lymphadenopathy in the retroperitoneum, mesentery, pelvis or inguinal regions. Urinary bladder: The urinary bladder is unremarkable. Reproductive: The uterus is unremarkable. There is no adnexal mass or large cyst. Bones/joints: Moderate lumbar degenerative disease and scoliosis. Small sacral arachnoid cyst. There is mild degenerative disease of both hips. The bony pelvis is intact. Soft tissues: The abdominal wall is intact. CT/CT abdomen pelvis w con* [id number] IMPRESSION: 1. No acute findings. 2. Incidental findings above.
[2023-12-19] MEDS: iohexol 350 mg/mL 500 mL Btl (per mL) IV (15:54)
--- NOTE | 2023-12-19 17:04 | ECG_ITS ---
[facility] Test Date: 2023-12-19 Pat Name: Fernando Jean Department: Room: Gender: Female Tug Captain: : 1940 Requested By: Pankaj Aguayo Order Number: [id number] Sandra MD: Arcenio Roy M.D. Measurements Intervals [place] Rate: 64 P: 59 NV: 151 QRS: 12 QRSD: 94 T: 24 QT: 421 QTc: 435 Interpretive Statements SINUS RHYTHM POSSIBLE LEFT ATRIAL ENLARGEMENT [-0.1mV P-WAVE IN V1/V2] Compared to ECG 12/19/2023 14:56:45 No significant changes Electronically Signed On 12-20-2023 17:57:08 PARTS TECHNICIAN by Arcenio Roy M.D. [id number]
[2023-12-19 17:29] LABS: Troponin 5 2HR 22.45 ng/L (0-10)
[2023-12-19 17:32] LABS: Troponin 5 2HR Delta -0.55 ABS# (0-10)
--- NOTE | 2023-12-19 18:03 | DCPLANNER ---
A message was sent to heart care on 12/19/23 at 2779. [facility] to contact patient for appt.
== END 2023-12-19 18:09 | disposition home or self-care (01) ==
PROVIDERS: Emergency Provider Emergency Medicine; PCP Nurse Practitioner
DX: R07.9 Chest pain, unspecified (principal); Z79.82 Long term (current) use of aspirin; I10 Essential (primary) hypertension; E78.2 Mixed hyperlipidemia
CPT/HCPCS: 36415; 71045; 74177; 80053; 83690; 84484; 85025; 93005; 99285; Q9967

== ENCOUNTER → 2023-12-20 10:23 | Outpatient (BNVA) | payer MEDICARE, OTHER, SELFPAY | PROVIDERS: PCP Nurse Practitioner; Visit Provider Nurse Practitioner | DX: E03.9 Hypothyroidism, unspecified (principal); E55.9 Vitamin D deficiency, unspecified | CPT/HCPCS: 82306; 84443 ==

== ENCOUNTER 2025-06-21 10:00 | Emergency (ER) | payer MEDICARE, OTHER, SELFPAY ==
--- NOTE | 2025-06-21 10:01 | ECG_ITS ---
[facility] Date: 2025-06-21 Pat Name: Fernando Jean Department: Room: Gender: Female Apartment Community Manager: : 1940 Requested By: Mariaa Seo Order Number: [id number] Reading MD: CESAR SKELTON Measurements Intervals [place] Rate: 73 P: 54 MA: 161 QRS: 19 QRSD: 93 T: 6 QT: 431 QTc: 476 Interpretive Statements SINUS RHYTHM LOW QRS VOLTAGE IN PRECORDIAL LEADS [QRS DEFLECTION < 1.0 mV IN CHEST LEADS] NONSPECIFIC T-WAVE ABNORMALITY Compared to ECG 12/19/2023 17:04:58 Low QRS voltage now present T-wave abnormality now present Electronically Signed On 06-21-2025 10:43:58 CDT by CESAR SKELTON [id number]
[2025-06-21 10:09] VITALS: BP 148/69; PULSE 73; RESP 18; TEMP 36.7; O2SAT 89
--- NOTE | 2025-06-21 10:10 | XR_ITS ---
WS: [id number] Portable AP upright chest, 06/21/2025 Clinical Data: syncope/fall Comparison: Portable chest, 12/19/2023 Findings: There are patchy bilateral opacities over both diaphragms which could represent atelectasis and/or minimal pneumonia. No nodules, masses or effusions are seen. The heart is normal. The pulmonary vascularity is not increased. No pneumothorax is seen. The aortic arch shows mild calcification. XR/XR chest 1V portable [id number] Impression: 1. Patchy bilateral opacities over both diaphragms which could represent atelec tasis and/or minimal pneumonia. 2. Atherosclerosis.
--- NOTE | 2025-06-21 10:11 | CT_ITS ---
WS: [id number] CT HEAD TECHNIQUE: Noncontrast CT of the head obtained from the skullbase to the vertex. CLINICAL INFORMATION: ams, syncope, fall COMPARISON: CT 2021 DLP: 1289.[address] scans at [facility] use at least one of these dose optimization techniques: automated exposure control; mA and/or kV adjustment per patient size (includes targeted exams where dose is matched to clinical indication); or iterative reconstruction. FINDINGS: No evidence of intracranial hemorrhage or mass effect. Ventricular system and basal cisterns are patent. Moderate small vessel changes with moderate parenchymal volume loss. No extra-axial fluid collections. No evidence of mass or mass effect. Vascular calcification. Tiny chronic lacunar infarcts RIGHT basal ganglia. Incidental slightly low-lying cerebellar tonsils. Paranasal sinuses and mastoid air cells are well aerated. .Normal visualized soft tissues. CT/CT head wo con* [id number] IMPRESSION: 1. No evidence of intracranial hemorrhage or mass effect. 2. No acute intracranial findings.
--- NOTE | 2025-06-21 10:12 | ED_ITS ---
HPI - Syncope 2 General: Chief Complaint: Syncope Stated Complaint: syncopal episode - fall Time Seen by Provider: 06/21/25 10:02 Source: patient and EMS Mode of arrival: EMS Limitations: other (probable baseline dementia) History of Present Illness: Patient is an 85-year-old female presents to the ED today from [facility] for evaluation of an episode of unresponsiveness. According to EMS [facility] that [facility], patient was bent over attempting to apply lotion to her legs when she had an episode of convulsion . There was questionable apneic period but no respiratory breaths were administered. There was no obvious history of any form of postictal. Patient states she remembers bending over to apply lotion as she states her legs are very dry. She does not remember much regarding the episode. Upon arrival patient knows where she is, her name, and she answers the majority of my questions fairly well. She states she is not having any physical discomfort. States she has had multiple syncopal episodes previously without obvious etiology. She denies chest pain, shortness of breath, difficulty breathing, palpitations. EMS did state she had one episode of vomiting following episode. MD complaint: loss of consciousness Onset (ago): hour(s) -: second(s) Prodromal symptoms: none Witnessed: Yes - by Bystander Context: other (bending over) Injuries sustained associated with event: none Associated symptoms: Reports no associated symptoms and nausea; Deny abdominal pain, chest pain, fever(s), headache(s) or lightheadedness History: previous syncopal episode Treatments prior to arrival: none Related Data Home Medications ?Medication ?Instructions ?Recorded ?Confirmed aspirin 81 mg tablet,delayed 81 mg PO DAILY 10/16/19 0 06/04/25 release famotidine 40 mg tablet (Pepcid) 40 mg PO BID 12/06/23 06/04/25 acetaminophen 500 mg tablet 500 mg PO Q6H PRN Pain 05/0606/04/25 atorvastatin 40 mg tablet 40 mg PO BEDTIME 12/19/23 calcium 500 mg (as 1 tab PO BID 12/19/23 carbonate)-vitamin D3 15 mcg (600 unit) tablet (Os-Noman 500 + D3) Previous Rx's ?Medication ?Instructions ?Recorded paroxetine HCl 20 mg tablet 10 mg (1/2 x 20 mg) PO BID #90 tabs 08/07/23 furosemide 20 mg tablet (Lasix) 20 mg PO QAM #30 tabs 12/06/23 levothyroxine 25 mcg tablet 25 mcg PO DAILY #90 tabs 0 12/24/23 sacubitril 49 mg-valsartan 51 mg 1 tab PO BID #60 tabs 05/08/24 tablet (Entresto) cholecalciferol (vitamin D3) 25 25 mcg PO DAILY #30 ca ps 09/27/24 mcg (1,000 unit) capsule aripiprazole 2 mg tablet (Abilify) 2 mg PO DAILY #30 t abs 01/29/25 sennosides 8.6 mg-docusate sodium 1 tab-cap PO QDAY co nstipation #30 02/26/25 50 mg capsule (Senna Plus) caps nystatin 100,000 unit/gram topical 1 applic topical BI D #60 grams 04/09/25 powder levocetirizine 5 mg tablet 5 mg PO DAILY #30 tabs 04/14 07/08 polyethylene glycol 3350 17 17 g PO DAILY #510 grams 0 06/08/25 gram/dose oral powder (Miralax) amoxicillin 875 mg-potassium 1 tab PO BID #14 tabs 06/07 clavulanate 125 mg tablet Allergies Allergy/AdvReac Type Severity Reaction Status Date / Time propranolol (From [facility] [place]) Allergy Unknown Unknown Verified 06/04/25 08:55 Review of Systems 2 Const: Denies: fever(s), chills, body aches, fatigue or malaise Eyes: Denies: change in vision ENMT: Denies: nasal discharge, nasal congestion or sinus pain Card: Reports: syncope; Denies: chest pain, palpitations, irregular heart rhythm, edema, swelling of feet/ankles or lightheadedness Resp: Denies: dyspnea, productive cough, non-productive cough or chest congestion GI: Reports: nausea and vomiting (one episode following syncope); Denies: abdominal pain or change in bowel habits : Denies: flank pain, dysuria or hematuria Musc: Denies: neck pain, back pain, extremity pain, extremity swelling, joint pain, joint swelling or joint redness Skin/Breast: Denies: rash Neuro: Denies: headache(s), numbness in extremities, weakness in extremities, sensory changes or dizziness PFSH ED 2 PFSH: Medical History Grade I diastolic dysfunction Vitamin D insufficiency Memory changes Wedge compression fracture of L1 vertebra OA (osteoarthritis of spine) Neuropathic arthropathy Acid reflux Essential (primary) hypertension Mixed anxiety and depressive disorder Mixed hyperlipidemia Congenital shortening of left lower limb Restless leg Surgical History History of cataract surgery Family History Other Arthritis Cancer Heart disease Social History Smoking and tobacco/nicotine status: never used tobacco/nicotine Second hand smoke exposure: No Alcohol intake: never Substance/Drug Use: never Caregiver/support person: No Lives independently: Yes Housing: Assisted Living Facility Marital status: / Current occupational status: retired Do you think of yourself as: Straight/Heterosexual Current gender identity: Female Physical Exam 2 Const: COMMON NORMALS: no acute distress, average body habitus, no limitations, healthy appearing, alert and well nourished GENERAL APPEARANCE: cooperative ORIENTATION/CONSCIOUSNESS: Yes awake, Yes oriented to person and Yes oriented to place OTHER: baseline dementia-at baseline per [facility] and family that arrived later during her visit HENMT: COMMON NORMALS: normocephalic and atraumatic HEAD & SCALP: normal to inspection, normocephalic and atraumatic FACE & SINUS: normal facial exam and face symmetric Eye: COMMON NORMALS: Equal, round and reactive pupils present and EOMs intact bilaterally GENERAL EYE: appearance normal, both eyes and all related structures and normal light reflex PUPIL: Yes Equal, round and reactive pupils present DIRECT OPHTHALMOSCOPY: Yes normal light reflex Neck/C-Spine: COMMON NORMALS: full ROM GENERAL: Yes normal visual inspection CERVICAL SPINE: No Cervical spine tenderness Chest: COMMONS NORMALS: normal inspection of the chest and normal palpation of entire chest wall Resp: COMMON NORMALS: normal respiratory effort and clear to auscultation bilaterally AUSCULTATION: clear to auscultation bilaterally Cardio: COMMON NORMALS: regular rate and regular rhythm RATE: regular rate RHYTHM: regular rhythm GI: COMMON NORMALS: Normal to inspection, nondistended, normoactive bowel sounds present, Soft to palpation, non-tender and no masses PALPATION: Yes Soft to palpation : COMMON NORMALS: Yes no CVA tenderness BLADDER/KIDNEY EXAM: Yes no CVA tenderness Back/Pelvis: COMMON NORMALS: no CVA tenderness, thoracic and lumbar spine normal to inspection and no thoracic nor lumbar tenderness Extremity: GENERAL: Yes normal exam except as noted Neuro: CHET COMA SCALE: document GCS findings Chet coma scale eye opening: Spontaneous [place] coma scale verbal response: Orientated [place] coma scale motor response: Obey commands [place] coma scale total score: 15 COMMON NORMALS: CN's II-XII intact bilaterally, moves all extremities, no focal motor deficits and no sensory deficits noted SENSORIUM/ORIENTATION: Yes alert, Yes oriented to person and Yes oriented to place SPEECH: speech normal Skin: COMMON NORMALS: no rashes or lesions noted GENERAL SKIN EXAM: no rashes or lesions noted TRAUMA: no lacerations or abrasions Course 2 Vital Signs: Vital signs: Vital Signs Temperature 98.1 F 06/21/25 10:09 Pulse Rate 74 06/21/25 11:41 Respiratory Rate 18 06/21/25 10:09 Blood Pressure 157/70 06/21/25 11:41 Pulse Oximetry 95 06/21/25 11:41 Oxygen Delivery Me thod Room Air 06/21/25 10:41 MDM - Syncope Medical Decision Making Patient is a nice 85-year-old female here from [facility] after she had a syncopal episode while she was bent over applying lotion to her legs. She has been at her mental baseline since here. She has no physical complaints. Vitals are stable. Imaging of her head and neck obtained and unremarkable. CXR showing bilateral patchy opacities that could be atelectasis and/or minimal pneumonia. Blood work showing normal CBC. Chemistry with mild hypokalemia and mild elevations to her AST/ALT as well as a critically high alkaline phosphatase. Patient is not having any abdominal pain. Her t. bili is normal. No fevers. Etiologies for this are broad. Discussed with Dr. Thomas who agrees that this can be worked up as an outpatient through her PCP. EKG non- ischemic. Trop at her normal baseline. She has no chest pain. UA suspcious for infection with a cloudy appearance, positive nitrates, 1+ leukocyte esterase, 21-50 WBCs, 4+ bacteria. Will place on abx. Return precautions discussed. Differential Diagnosis Likely syncope due to orthostatic hypotension, vasovagal syncope and dehydration Medical Records I reviewed the patient's medical records. Lab Data I reviewed the patient's lab results. 06/21/25 11:25 06/21/25 11:25 Radiology Impressions Chest X-Ray 06/21/25 10:10 Impression: 1. Patchy bilateral opacities over both diaphragms which could represent atelectasis and/or minimal pneumonia. 2. Atherosclerosis. Head CT 06/21/25 10:11 IMPRESSION: 1. No evidence of intracranial hemorrhage or mass effect. 2. No acute intracranial findings. Cervical Spine CT 06/21/25 10:12 IMPRESSION: No evidence of acute fracture or dislocation. Laboratory Results WBC 10.04 10^3/uL (3.29-11.43) 06/21/25 11:25 RBC 5.29 10^6/uL (3.85-5.65) 06/21/25 11:25 Hgb 14.90 g/dL (11.27-16.99) 06/21/25 11:25 Hct 47.4 % (36-47) H 06/21/25 11:25 MCV 89.6 fl (85-98) 06/21/25 11:25 MCH 28.2 pg (27-33) 06/21/25 11:25 MCHC 31.4 g/dL (30-55) 06/21/25 11:25 RDW 13.2 % (12.1-15.1) 06/21/25 11:25 Plt Count 359 10^3/cmm (157-399) 06/21/25 11:25 MPV 10.0 fL (7.4-10.4) 06/21/25 11:25 Neut % (Auto) 73.0 % 06/21/25 11:25 Lymph % (Auto) 13.6 % 06/21/25 11:25 Pershing % (Auto) 8.5 % 06/21/25 11:25 Eos % (Auto) 3.7 % 06/21/25 11:25 Baso % (Auto) 0.7 % 06/21/25 11:25 Neut # (Auto) 7.33 10^3/uL (1.8-7.7) 06/21/25 11:25 Lymph # (Auto) 1.4 10^3/uL (0.8-4.8) 06/21/25 11:25 Pershing # (Auto) 0.9 10^3/uL (0.2-0.9) 06/21/25 11:25 Eos # (Auto) 0.4 10^3/uL (0.0-0.8) 06/21/25 11:25 Baso # (Auto) 0.1 10^3/uL (0.0-0.1) 06/21/25 11:25 Nucleated RBC % (auto) 0 % 06/21/25 11:25 Nucleated RBCs # 0.0 /100WBC 06/21/25 11:25 Sodium 138 mmol/L (136-145) 06/21/25 11:25 Potassium 3.3 mmol/L (3.5-5.1) L 06/21/25 11:25 Chloride 97 mmol/L (98-107) L 06/21/25 11:25 Carbon Dioxide 26 mmol/L (22-29) 06/21/25 11:25 Anion Gap 18.3 (5-19) 06/21/25 11:25 BUN 10 mg/dL (8-23) 06/21/25 11:25 Creatinine 0.9 mg/dL (0.5-0.9) 06/21/25 11:25 GFR Calculation Not Reportable 06/21/25 11:25 Glucose 109 mg/dL (65-115) 06/21/25 11:25 Calculated Osmolality 286 mOsm/kg (285-295) 06/21/25 11:25 Calcium 9.5 mg/dL (8.5-10.5) 06/21/25 11:25 Total Bilirubin 0.7 mg/dL (0.15-1.2) 06/21/25 11:25 AST 76 U/L (0-32) H 06/21/25 11:25 ALT 69 U/L (0-33) H 06/21/25 11:25 Alkaline Phosphatase 1111 U/L (35-105) H* 06/21/25 11:25 Troponin T Baseline 20 ng/L (0-10) H 06/21/25 11:25 Total Protein 8.7 g/dL (6.6-8.7) 06/21/25 11:25 Albumin 3.6 g/dL (3.5-5.2) 06/21/25 11:25 Globulin 5.1 g/dL (1.3-4.6) H 06/21/25 11:25 Urine Color Yellow (Yellow) 06/21/25 11:40 Urine Appearance Cloudy (CLEAR) A 06/21/25 11:40 Urine pH 5.5 (5-7) 06/21/25 11:40 Ur Specific Jewett 1.016 (1.005-1.030) 06/21/25 11:40 Urine Protein 1+ (Negative) A 06/21/25 11:40 Urine Glucose (UA) Negative (Normal) 06/21/25 11:40 Urine Ketones Negative (Negative) 06/21/25 11:40 Urine Blood Negative (Negative) 06/21/25 11:40 Urine Nitrate Positive (Negative) A 06/21/25 11:40 Urine Bilirubin Negative (Negative) 06/21/25 11:40 Urine Urobilinogen 1.0 mg/dL (Negative) 06/21/25 11:40 Ur Leukocyte Esterase 1+ (Negative) A 06/21/25 11:40 Urine RBC 6-10 /hpf (0-2) 06/21/25 11:40 Urine WBC 21-50 /hpf (0-5) H 06/21/25 11:40 Ur Squamous Epith Cells 6-10 /hpf (0-5) 06/21/25 11:40 Amorphous Sediment Not Reportable 06/21/25 11:40 Urine Bacteria 4+ /hpf (NONE) H 06/21/25 11:40 Hyaline Casts 7.01 /lpf 06/21/25 11:40 All radiology interpretation(s) finalized by discharge Discharge Plan Discharge Patient Disposition: Home Clinical Impression: Acute UTI, Elevated alkaline phosphatase level Syncope Qualifiers: Syncope type: unspecified Qualified Code(s): R55 - Syncope and collapse Condition: Stable Prescriptions: New amoxicillin-pot clavulanate 875-125 mg tablet 1 tab PO BID Qty: 14 0RF No Action aspirin 81 mg tablet,delayed release (DR/EC) 81 mg PO DAILY famotidine [Pepcid] 40 mg tablet 40 mg PO BID furosemide [Lasix] 20 mg tablet 20 mg PO QAM Qty: 30 2RF Entresto 49-51 mg tablet 1 tab PO BID Qty: 60 5RF Senna Plus 8.6-50 mg capsule 1 tab-cap PO QDAY Qty: 30 4RF polyethylene glycol 3350 [Miralax] 17 gram/dose powder 17 g PO DAILY Qty: 510 0RF levothyroxine 25 mcg tablet 25 mcg PO DAILY Qty: 90 0RF cholecalciferol (vitamin D3) 25 mcg (1,000 unit) capsule 25 mcg PO DAILY Qty: 30 5RF aripiprazole [Abilify] 2 mg tablet 2 mg PO DAILY Qty: 30 2RF Rx Instructions: dose decrease nystatin 100,000 unit/gram powder 1 applic topical BID Qty: 60 0RF Rx Instructions: use 2 times day levocetirizine 5 mg tablet 5 mg PO DAILY Qty: 30 5RF paroxetine HCl 20 mg tablet 10 mg PO BID Qty: 90 0RF acetaminophen 500 mg Tablet 500 mg PO Q6H PRN (Reason: Pain) atorvastatin 40 mg tablet 40 mg PO BEDTIME Rx Instructions: bedtime Os-Noman 500 + D3 500 mg-15 mcg (600 unit) tablet 1 tab PO BID Discharge Orders: Discharge ED (Routine); Ordered 06/21/25 Ordered By: Mariaa Seo Referrals: Mustapha Claros, YANC [Primary Care Provider, Family Practice] Patient Instructions: Patient Portal & Nurys Instructions Activity Restrictions/Additional Instructions: As we discussed, your blood work today was fairly unremarkable apart from significant elevations to her alkaline phosphatase was elevated at 1,111. There are many etiologies for this. It is unrelated to her presenting complaint to the emergency department and found incidentally. Her primary care provider will need to work this up further as an outpatient. Your urine analysis was suspicious for infection that she will be placed on antibiotics. Pharmacy will bring these prior to you leaving. Patient needs to return to the emergency department for onset of severe abdominal pain, yellowing to her skin or eyes, fevers, altered mental status, or any other concerns you may have. Print Language: Turkish Coding Level of Care Code ED [employer] Executive for 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
--- NOTE | 2025-06-21 10:12 | CT_ITS ---
WS: [id number] CT CERVICAL TRAUMA TECHNIQUE: Noncontrast CT of the cervical spine with coronal and sagittal reformatted images. CLINICAL INFORMATION: trauma/fall COMPARISON: None. DLP: 1289.[address] scans at [facility] use at least one of these dose optimization techniques: automated exposure control; mA and/or kV adjustment per patient size (includes targeted exams where dose is matched to clinical indication); or iterative reconstruction. FINDINGS: Straightening with slight reversal of the normal cervical lordosis. Slight anterolisthesis C3 on C4 and C4 on C5. Disc space narrowing worse at C5-C6 and C6-C7 with disc osteophyte complexes with mild central canal stenosis. Dens is normal in appearance. Normal occipital condyles. Normal C1 ring. No evidence of acute fracture or dislocation. Fibrosis in the lung apices. Normal prevertebral soft tissues. Mastoids air cells are well aerated. CT/CT cervical spin wo con* [id number] IMPRESSION: No evidence of acute fracture or dislocation.
[2025-06-21 10:41] VITALS: PULSE 69; O2SAT 93
--- NOTE | 2025-06-21 11:09 | ECG_ITS ---
[facility] Test Date: 2025-06-21 Pat Name: Fernando Jean Department: Room: Gender: Female Corporate Traffic Manager: : 1940 Requested By: Mariaa Seo Order Number: [id number] Sandra MD: Ashish Roque M.D. Measurements Intervals [place] Rate: 63 P: 63 NV: 160 QRS: 31 QRSD: 100 T: 34 QT: 453 QTc: 466 Interpretive Statements SINUS RHYTHM LOW QRS VOLTAGE IN PRECORDIAL LEADS [QRS DEFLECTION < 1.0 mV IN CHEST LEADS] Compared to ECG 06/21/2025 10:01:29 T-wave abnormality no longer present Electronically Signed On 06-23-2025 22:50:55 CDT by Ashish Roque M.D. [id number]
[2025-06-21 11:36] LABS: Hematocrit 47.4 % (36-47); Hemoglobin 14.90 g/dL (11.27-16.99); Mean Corpuscular HGB Conc 31.4 g/dL (30-55); Mean Corpuscular Hemoglobin 28.2 pg (27-33); Mean Corpuscular Volume 89.6 fl (85-98); Nucleated Red Blood Cells % 0 %; Platelet Count 359 10^3/cmm (157-399); Red Blood Count 5.29 10^6/uL (3.85-5.65); White Blood Count 10.04 10^3/uL (3.29-11.43)
[2025-06-21 11:41] VITALS: BP 157/70; PULSE 74; O2SAT 95
[2025-06-21 11:47] LABS: Troponin(5th) Baseline 20 ng/L (0-10)
[2025-06-21 11:48] LABS: Glucose Urine UA Negative (Normal); Nitrate Urine Positive (Negative); Specific Gravity, Urine 1.016 (1.005-1.030)
[2025-06-21 11:51] LABS: Alanine Aminotransferase 69 U/L (0-33); Albumin Level 3.6 g/dL (3.5-5.2); Anion Gap 18.3 (5-19); Aspartate Amino Transferase 76 U/L (0-32); Blood Urea Nitrogen 10 mg/dL (8-23); Calcium 9.5 mg/dL (8.5-10.5); Carbon Dioxide 26 mmol/L (22-29); Chloride 97 mmol/L (98-107); Creatinine Clr Calc Pharmacy 45.7110; Globulin 5.1 g/dL (1.3-4.6); Glucose 109 mg/dL (65-115); Osmolality Calculated 286 mOsm/kg (285-295); Potassium 3.3 mmol/L (3.5-5.1); Sodium 138 mmol/L (136-145); Total Protein 8.7 g/dL (6.6-8.7)
[2025-06-21 11:55] LABS: Add Urine Microscopic? YES
[2025-06-21 11:57] LABS: Alkaline Phosphatase 1111 U/L (35-105)
[2025-06-21 12:09] LABS: UA Slide Review UA Slide Review Perf
[2025-06-21 12:46] VITALS: BP 150/70; PULSE 65; O2SAT 95
== END 2025-06-21 12:49 | disposition home or self-care (01) ==
PROVIDERS: Emergency Provider Physician Assistant; PCP Nurse Practitioner
DX: N39.0 Urinary tract infection, site not specified (principal); R55 Syncope and collapse; R74.8 Abnormal levels of other serum enzymes; Z79.82 Long term (current) use of aspirin; E78.2 Mixed hyperlipidemia; I10 Essential (primary) hypertension
CPT/HCPCS: 70450; 71045; 72125; 80053; 81001; 84484; 85025; 87077; 87086; 87186; 93005; 99285

== ENCOUNTER 2025-07-05 07:39 | Outpatient (CLI) | payer MEDICARE, SELFPAY ==
--- NOTE | 2025-07-05 08:45 | CTR_ITS ---
PROCEDURE INFORMATION: Exam: CT Chest With Contrast; Diagnostic Exam date and time: 07/05/2025 9:27 AM Age: 85 years old Clinical indication: Abnormal findings; Abnormal lab test; Other: Abnormal levels of other serum enzymes; Abnormal diagnostic tests; Additional info: R74.8 - abnormal levels of other serum enzymes TECHNIQUE: Imaging protocol: Diagnostic computed tomography of the chest with contrast. Radiation optimization: All CT scans at this facility use at least one of these dose optimization techniques: automated exposure control; mA and/or kV adjustment per patient size (includes targeted exams where dose is matched to clinical indication); or iterative reconstruction. Contrast material: OMNI 350; Contrast volume: 100 ml; Contrast route: INTRAVENOUS (IV); COMPARISON: CR XR chest 1V portable [id number] 06/21/2025 10:11 AM RADIATION DOSE METRICS: Total DLP (mGy-cm): 869.27 FINDINGS: Lungs: Bilateral lower lung platelike atelectasis versus scarring. No consolidation or mass. Pleural spaces: Unremarkable. No pneumothorax. No pleural effusion. Heart: Unremarkable. No cardiomegaly. No pericardial effusion. Lymph nodes: Unremarkable. No enlarged lymph nodes. Vasculature: Moderate systemic atherosclerosis without aortic aneurysm. Bones/joints: No acute fracture. Mild degenerative changes along the spine. Soft tissues: Unremarkable. PROCEDURE INFORMATION: Exam: CT Abdomen And Pelvis With Contrast Exam date and time: 07/05/2025 9:27 AM Age: 85 years old Clinical indication: Abnormal findings; Abnormal lab test; Other: Abnormal levels of other serum enzymes; Abnormal diagnostic tests; Additional info: R74.8 - abnormal levels of other serum enzymes TECHNIQUE: Imaging protocol: Computed tomography of the abdomen and pelvis with contrast. Radiation optimization: All CT scans at this facility use at least one of these dose optimization techniques: automated exposure control; mA and/or kV adjustment per patient size (includes targeted exams where dose is matched to clinical indication); or iterative reconstruction. Contrast material: OMNI 350; Contrast volume: 100 ml; Contrast route: INTRAVENOUS (IV); COMPARISON: CT abdomen pelvis w con* [id number] 12/19/2023 3:50 PM RADIATION DOSE METRICS: Total DLP (mGy-cm): 869.27 FINDINGS: Diaphragm: Small hiatal hernia. Liver: Normal. No mass. Gallbladder and biliary ducts: Cholelithiasis without CT findings of cholecystitis. Heterogeneous filling defect at the distal common duct with [id number] upstream intrahepatic and extrahepatic biliary ductal dilatation with the common duct measuring up to 1.3 cm. Pancreas: Normal. No ductal dilation. Spleen: No splenomegaly. Calcified granulomata. Adrenal glands: Normal. No mass. Kidneys and ureters: Simple appearing left renal cyst requires no dedicated imaging follow-up. Otherwise unremarkable. Stomach and bowel: No bowel dilatation to suggest obstruction. Mild colonic diverticulosis without findings of diverticulitis. No evidence of mucosal thickening. Oral contrast visualized to the sigmoid colon. Appendix: No evidence of appendicitis. Intraperitoneal space: Unremarkable. No free air. No significant fluid collection. Vasculature: Moderate systemic atherosclerosis without abdominal aortic aneurysm. Lymph nodes: Unremarkable. No enlarged lymph nodes. Urinary bladder: Unremarkable as visualized. Reproductive: Unremarkable as visualized. Bones/joints: No acute fracture. Mild levoconvex thoracolumbar spine curvature. Degenerative changes along the imaged axial skeletal system. Soft tissues: Unremarkable. CT/CT chest abdpel w/*[id number] IMPRESSION: No acute findings. IMPRESSION: 1. Heterogeneous filling defect at the distal common duct with [id number] upstream biliary ductal dilatation. Consideration for choledocholithiasis versus obstructing neoplasm. 2. Additional chronic and incidental findings as above.
[2025-07-05] MEDS: iohexol 350 mg/mL 500 mL Btl (per mL) PO (09:53)
[2025-07-05] MEDS: iohexol 350 mg/mL 500 mL Btl (per mL) IV (09:53)
== END 2025-07-05 07:40 | disposition home or self-care (01) ==
LOC: RAD 07:42
PROVIDERS: PCP Nurse Practitioner; Visit Provider Nurse Practitioner
DX: R74.8 Abnormal levels of other serum enzymes (principal); K44.9 Diaphragmatic hernia without obstruction or gangrene; K80.20 Calculus of gallbladder without cholecystitis without obstruction; K83.8 Other specified diseases of biliary tract; K57.90 Diverticulosis of intestine, part unspecified, without perforation or abscess without bleeding; M41.85 Other forms of scoliosis, thoracolumbar region; K80.51 Calculus of bile duct without cholangitis or cholecystitis with obstruction
CPT/HCPCS: 71260; 74177